=== PATIENT | female | born 1945 | race Caucasian/White ===

== ENCOUNTER 2017-01-22 05:10 | Inpatient (IN) ==
[2017-01-17 12:22] LABS: Basophils # (Auto) 0.1 K/mcL (0.0-0.3); Basophils % (Auto) 0.7 % (0.0-2.0); Eosinophils # (Auto) 0.6 K/mcL (0.0-0.7); Eosinophils % (Auto) 6.8 % (0.0-7.0); Granulocytes % (Auto) 55.1 % (38.0-78.0); Lymphocytes # (Auto) 2.5 K/mcL (1.5-4.8); Mean Cell Volume 93.6 fL (80.0-100.0); Mean Corpuscular HGB Conc 32.9 g/dL (31.0-36.0); Mean Corpuscular Hemoglobin 30.8 pg (26.0-34.0); Monocytes # (Auto) 0.5 K/mcL (0.1-0.9); Monocytes % (Auto) 6.4 % (1.0-9.0); Platelet Count 329 K/mcL (140-440); RBC 4.21 M/mcL (4.00-5.20); Red Cell Distribution Width 13.4 % (11.5-14.5)
[2017-01-17 12:33] LABS: ALT/SGPT 14 U/l (0-40); Albumin 4.7 gm/dL (3.2-5.2); Albumin/Globulin Ratio 1.9 (1.0-2.3); Alkaline Phosphatase 49 U/L (39-117); Blood Urea Nitrogen 19 mg/dl (8-23)
[2017-01-19 13:13] LABS: Appearance,Urine CLEAR; Bilirubin,Urine NEG (NEG); Color,Urine YELLOW; Glucose,Urine (UA) NORM (NEG); Leukocyte Esterase,Urine NEG /uL (NEG); Nitrate,Urine NEG (NEG); Protein,Urine TRACE mg/dL (<25); Specific Gravity,Urine 1.023 (1.000-1.035); Urine Blood NEG mg/dL (<0.03); Urobilinogen,Urine NORM (NEG)
[2017-01-19 13:24] LABS: Bacteria,Urine 0 /hpf (0); Mucus,Urine FEW /hpf (0); Urine RBC 4 /hpf (0-1); Urine Squamous Epithelial Cell 1 /hpf (0-4); Urine WBC 0 /hpf (0-4)
[2017-01-22] MEDS ORDERED: ceFAZolin 1 GM VIAL IV SCH (06:00)
[2017-01-22 06:02] LABS: Appearance,Urine HAZY; Bacteria,Urine 0 /hpf (0); Bilirubin,Urine NEG (NEG); Color,Urine YELLOW; Glucose,Urine (UA) NEGATIVE (NEG); Leukocyte Esterase,Urine 25 /uL (NEG); Mucus,Urine MANY /hpf (0); Nitrate,Urine NEG (NEG); Protein,Urine NEG (NEG); Specific Gravity,Urine 1.023 (1.000-1.035); Urine Blood NEG mg/dL (<0.03); Urine Hyaline Cast 62 /lpf (0-2); Urine RBC 2 /hpf (0-1); Urine Squamous Epithelial Cell 3 /hpf (0-4); Urine WBC 3 /hpf (0-4); Urobilinogen,Urine NEG (NEG)
[2017-01-22] MEDS ORDERED: PROPOFOL 200 MG/20 ML VIAL IV ONE (07:50)
[2017-01-22] MEDS ORDERED: LIDOCAINE HCL/PF 100 MG/5 ML SYRINGE IV ONE (07:50)
[2017-01-22] MEDS ORDERED: fentaNYL 100 MCG/2 ML VIAL IV ONE (07:50)
[2017-01-22] MEDS ORDERED: MIDAZOLAM 5 MG/5 ML VIAL IV ONE (07:50)
[2017-01-22] MEDS ORDERED: GLYCOPYRROLATE 0.2 MG/ML VIAL IV ONE (07:50)
[2017-01-22] MEDS ORDERED: PHENYLEPHRINE 10 MG/ML VIAL IV ONE (07:50)
[2017-01-22] MEDS ORDERED: DEXAMETHASONE 10 MG/ML VIAL IV ONE (07:50)
[2017-01-22] MEDS ORDERED: SUCCINYLCHOLINE 20 MG/ML ML IV ONE (07:50)
[2017-01-22] MEDS ORDERED: HYDROmorphone 2 MG/ML SYRINGE IV ONE (07:50)
[2017-01-22] MEDS ORDERED: KETAMINE 100 MG/ML ML IV ONE (07:50)
[2017-01-22] MEDS ORDERED: ONDANSETRON 4 MG/2 ML VIAL IV ONE (07:50)
[2017-01-22] MEDS ORDERED: TRANEXAMIC ACID 1,000 MG/10 ML VIAL IV ONE (07:50)
[2017-01-22] MEDS ORDERED: GELATIN SPONGE,ABSORBABLE 1 GM POWDER TOPICAL ONE (09:03)
[2017-01-22] MEDS ORDERED: GELATIN SPONGE,ABSORBABLE 1 EACH SPONGE TOPICAL ONE (09:05)
[2017-01-22] MEDS ORDERED: HEPARIN 20,000 UNIT/ML VIAL IR ONE (09:07)
[2017-01-22] MEDS ORDERED: THROMBIN (BOVINE) 5,000 UNIT VIAL TOPICAL ONE (09:08)
[2017-01-22] MEDS: CALCIUM GLUCONATE 4.65 MEQ in DEXTROSE 5% IN WATER 50 ML TOPICAL ONE ×2 (09:15→09:29)
[2017-01-22] MEDS ORDERED: CALCIUM GLUCONATE 4.65 MEQ/10 ML VIAL TOPICAL ONE (09:28)
[2017-01-22] MEDS ORDERED: PROMETHAZINE 25 MG/ML VIAL IV PRN (10:45)
[2017-01-22] MEDS ORDERED: METHOCARBAMOL 1,000 MG/10 ML VIAL IV PRN ×2 (10:45→10:55)
[2017-01-22] MEDS ORDERED: BENZOCAINE/MENTHOL 1 LOZENGE PO PRN ×2 (10:45→10:55)
[2017-01-22] MEDS ORDERED: LACTATED RINGERS 1,000 ML IV SCH (10:45)
[2017-01-22] MEDS ORDERED: LABETALOL HCL 20 MG/4 ML SYRINGE IV PRN (10:45)
[2017-01-22] MEDS ORDERED: MEPERIDINE 25 MG/ML SYRINGE IV PRN (10:45)
[2017-01-22] MEDS ORDERED: HYDROmorphone 2 MG/ML SYRINGE IV PRN (10:45)
[2017-01-22] MEDS ORDERED: IPRATROPIUM/ALBUTEROL 3 ML AMPUL.NEB NEB PRN (10:45)
[2017-01-22] MEDS ORDERED: KETOROLAC 15 MG/ML VIAL IV ONE ×2 (10:45→14:07)
[2017-01-22] MEDS ORDERED: MAGNESIUM HYDROXIDE 30 ML ORAL.SUSP PO PRN (10:55)
--- NOTE | 2017-01-22 10:55 | Brief Operative Note ---
Date of procedure: 01/22/17 Pre-op diagnosis: lumbar stenosis with instability Post-op diagnosis: same Procedure: decompression and fusion L5S1 decompression L4/5 Grafts/Implants: Yes (nuvasive) Anesthesia: GETA Findings: stenosis Complications: none Surgeon: Tao Nix Professor Of Religious Studies: Miguel Ramos Estimated blood loss (cc): 300 Condition: stable Disposition: PACU
[2017-01-22] MEDS ORDERED: BUPIVACAINE 0.25% 50 ML VIAL IJ ONE (10:59)
[2017-01-22] MEDS ORDERED: ACETAMINOPHEN 1,000 MG/100 ML BOTTLE IV ONE (11:00)
[2017-01-22] MEDS ORDERED: ACETAMINOPHEN W/CODEINE #3 1 TABLET PO PRN (11:00)
[2017-01-22] MEDS ORDERED: traMADol 50 MG TABLET PO PRN (11:00)
[2017-01-22] MEDS ORDERED: GUM MASTIC/STORAX/MSAL/ALCOHOL 1 DOSE DROPERETTE TOPICAL ONE (11:01)
[2017-01-22] MEDS: fentaNYL 100 MCG/2 ML VIAL IV PRN ×4 (11:58→12:14)
[2017-01-22] MEDS: 0.9 % SODIUM CHLORIDE 1,000 ML IV SCH ×3 (12:43→22:53)
[2017-01-22] MEDS: oxyCODONE HCL 5 MG TABLET PO PRN (13:28)
[2017-01-22] MEDS ORDERED: HYDROmorphone PCA 30 MG/30 ML PCA.VIAL IV PRN (14:02)
[2017-01-22] MEDS: ceFAZolin 1 GM VIAL IV SCH (17:06)
[2017-01-22] MEDS: metFORMIN 500 MG TABLET PO SCH (18:35)
[2017-01-22] MEDS: FERROUS GLUCONATE 324 MG TABLET PO SCH (20:55)
[2017-01-22] MEDS: SENNOSIDES 1 TABLET PO SCH (20:56)
[2017-01-22] MEDS: DOCUSATE SODIUM 100 MG CAPSULE PO SCH (20:57)
[2017-01-22] MEDS: PRAMIPEXOLE 0.25 MG TABLET PO SCH (21:02)
[2017-01-23] MEDS: ceFAZolin 1 GM VIAL IV SCH (00:31)
--- NOTE | 2017-01-23 06:39 | Orthopedic Progress Note ---
Subjective Patient information: Note initiated : 01/23/17 at 6:37 am Service Date, if different from initiated Date: [] Patient: Freida Mooney 71 y/o F admitted on 01/22/17 for L5-S1 Posterior Lumbar Decompression with Fusion. Chief Complaint: [] Principal diagnosis: lumbar stenosis Interval history: No specific complaints still some residual radicular pain Objective Vital signs: Vital Signs Temp Pulse Pulse Resp BP BP BP 01/23/17 03:48 98.3 F 79 16 107/56 01/23/17 00:00 98.4 F 80 16 94/56 01/22/17 21:35 01/22/17 21:34 01/22/17 20:00 97.4 F L 75 16 116/67 01/22/17 16:27 97 H 133/79 01/22/17 15:28 16 01/22/17 14:33 97 H 135/84 01/22/17 14:18 97 H 130/84 01/22/17 14:03 100 H 134/84 01/22/17 13:48 103 H 127/78 01/22/17 13:32 95 H 124/80 01/22/17 13:18 98 H 124/81 01/22/17 13:03 106 H 134/81 01/22/17 12:47 106 H 129/77 01/22/17 12:33 98.2 F 105 H 13 151/64 01/22/17 12:09 108 H 12 154/64 01/22/17 11:53 114 H 103 H 14 150/73 01/22/17 11:38 118 H 16 167/69 01/22/17 11:33 105 H 15 163/63 01/22/17 11:28 107 H 17 155/88 01/22/17 11:23 105 H 14 158/61 01/22/17 11:18 106 H 14 150/57 01/22/17 11:13 98.8 F 108 H 12 120/95 01/22/17 08:00 98.5 F 94 H 83 16 158/79 01/22/17 07:00 98.5 F 94 H 83 16 139/65 Pulse Ox 01/23/17 03:48 97 01/23/17 00:00 97 01/22/17 21:35 98 01/22/17 21:34 98 01/22/17 20:00 96 01/22/17 16:27 97 01/22/17 15:28 01/22/17 14:33 97 01/22/17 14:18 97 01/22/17 14:03 97 01/22/17 13:48 97 01/22/17 13:32 96 01/22/17 13:18 97 01/22/17 13:03 96 01/22/17 12:47 96 01/22/17 12:33 94 01/22/17 12:09 94 01/22/17 11:53 97 01/22/17 11:38 99 01/22/17 11:33 97 01/22/17 11:28 97 01/22/17 11:23 97 01/22/17 11:18 98 01/22/17 11:13 97 01/22/17 08:00 93 01/22/17 07:00 93 Intake and Output 01/22/17 01/23/17 01/23/17 21:59 05:59 13:59 Intake Total 1498 / 1498 Output Total 1200 / 1200 250 / 250 Balance -1200 / -1200 1248 / 1248 Intake: IV 998 / 998 Sodium Chloride 0.9% 1, 998 / 998 000 ml @ 100 mls/hr IV . Q10H [facility] Rx#:[id number] Oral 500 / 500 Output: Drainage 50 / 50 Posterior EVETTE Drain 50 / 50 Void Amount 1200 / 1200 200 / 200 Other: Weight 204 lb Intake & Output: Intake & Output 01/22/17 01/23/17 01/23/17 21:59 05:59 13:59 Intake Total 1498 / 1498 Output Total 1200 / 1200 250 / 250 Balance -1200 / -1200 1248 / 1248 Weight 204 lb Intake: IV 998 / 998 Sodium Chloride 0.9% 1, 998 / 998 000 ml @ 100 mls/hr IV . Q10H [facility] Rx#:[id number] Oral 500 / 500 Output: Drainage 50 / 50 Posterior EVETTE Drain 50 / 50 Void Amount 1200 / 1200 200 / 200 Dressing: Yes clean, Yes dry Weight bearing status: full Neurological exam IM: Yes neurovascular intact - Labs CBC & BMP: 01/17/17 10:45 01/17/17 10:45 Labs: Orthopedic Labs 01/17/17 10:45 PT 13.7 INR 1.0 03/07/17 03/01/17 05:45 10:45 Hgb Pending 13.0 Hct Pending 39.4 Assessment and Plan (1) Lumbar stenosis mobilize with physical therapy Status: Acute
[2017-01-23 07:21] LABS: Blood Urea Nitrogen 22 mg/dl (8-23)
[2017-01-23] MEDS: DULoxetine 30 MG CAPSULE PO SCH (08:02)
[2017-01-23] MEDS: LISINOPRIL 5 MG TABLET PO SCH (08:02)
[2017-01-23] MEDS: metFORMIN 500 MG TABLET PO SCH ×2 (08:02→16:56)
[2017-01-23] MEDS: DOCUSATE SODIUM 100 MG CAPSULE PO SCH ×2 (08:02→19:38)
[2017-01-23] MEDS: FERROUS GLUCONATE 324 MG TABLET PO SCH ×2 (08:05→19:37)
--- NOTE | 2017-01-23 08:56 | Operative Note ---
DATE OF OPERATION: 01/22/2017 PREOPERATIVE DIAGNOSIS: Stenosis and instability L5-S1 with lateral recess stenosis L4-L5. POSTOPERATIVE DIAGNOSIS: Stenosis and instability L5-S1 with lateral recess stenosis L4-L5. OPERATION PROPOSED: Lumbar laminotomy L4-L5 with decompression L5-S1. Posterior nonsegmental instrumentation L5-S1. Posterior/posterolateral fusion L5-S1. Application of prosthetic device interbody space and interbody fusion L5-S1. Aspiration of iliac crest for osteoprogenitor cells, bilateral iliac crests. OPERATION PERFORMED: Lumbar laminotomy L4-L5 with decompression L5-S1. Posterior nonsegmental instrumentation L5-S1. Posterior/posterolateral fusion L5-S1. Application of prosthetic device interbody space and interbody fusion L5-S1. Aspiration of iliac crest for osteoprogenitor cells, bilateral iliac crests. OPERATING SURGEON: Tao Nix MD. POLICE SERVICE TECHNICIAN: Miguel Ramos PA-C. INDICATIONS: This is a lady who has had disabling radiculopathy. She has stenosis and instability. She has failed conservative measures. We have elected to proceed with a decompression and fusion. OPERATION IN DETAIL: Informed consent was obtained. She was taken to the operating room where she was provided with appropriate anesthetic and prophylactic antibiotics. She was carefully positioned. Her back was prepped sterilely. Midline incision was made. I dissected down to expose the spinous process and lamina of L4 through S1. I dissected up and around the facet joints to expose the transverse process of L5 and the sacral ala. A marker was placed and a radiograph obtained. We then performed the decompression. This was done by removing the inferior one-half of spinous process and lamina of L5, the hypertrophied medial border of the facet joint of the hypertrophied ligamentum flavum. I then worked out into the opening of the neural foramen. I also performed a laminotomy at L4-L5, decompressing the lateral recess and the opening of the neural foramen. I then placed the posterior instrumentation, this being a pedicle screw construct. I identified the appropriate starting position. I passed a gearshift awl and cannulating the pedicle I tapped each pedicle and probed the pedicle to ensure there was no pedicle wall violation. I had also used EMG guidance. An appropriate length pedicle screw was placed at L5 and S1, both on the right and left. Radiographs obtained confirmed the position of the hardware. I then aspirated the iliac crest for osteoprogenitor cells. This was done by advancing Jamshidi type needle into the iliac crest. I aspirated. After every 10 to 15 mL of aspirate, I repositioned the needle. This was done bilaterally. I then passed the aspirate to the back table where it was spun down for osteoprogenitor cells. I then performed the application of prosthetic device interbody space and interbody fusion. This was done by mobilizing the nerve root towards the midline. I incised the annulus. I extensively curetted the disc space debriding down to subchondral bone. I removed all disc material. I then filled the disc space with morcellized bone graft. A cage from [place] was filled with morcellized graft and impacted into the site prepared for it. Posterior and posterolateral fusion was then performed. This was done by extensively decorticating the posterolateral aspect of the spine. I packed morcellized graft into and against the decorticated posterolateral aspect of the spine to allow perfusion. The procedure was completed by compressing across the interbody graft. I tightened and torqued the kezia into the top pedicle screws. I had irrigated thoroughly with pulsatile lavage prior to placing any bone graft. I closed over a deep drain with an 0 Vicryl in interrupted fashion, 2-0 Vicryl inverted deep dermal, and running subcuticular. The procedure was tolerated well. No complications. Estimated blood loss was 200 mL. GDD:harriet Job ID: [id number] Doc ID: [id number] Tao Nix MD
[2017-01-23] MEDS: oxyCODONE HCL 5 MG TABLET PO PRN ×2 (09:39→13:43)
[2017-01-23] MEDS ORDERED: KETOROLAC 30 MG/ML VIAL IV ONE (16:52)
[2017-01-23] MEDS: 0.9 % SODIUM CHLORIDE 1,000 ML IV SCH (17:09)
[2017-01-23] MEDS: HYDROmorphone 2 MG TABLET PO PRN ×2 (19:37→23:40)
[2017-01-23] MEDS: SENNOSIDES 1 TABLET PO SCH (19:38)
[2017-01-23] MEDS: PRAMIPEXOLE 0.25 MG TABLET PO SCH (19:38)
[2017-01-24] MEDS: 0.9 % SODIUM CHLORIDE 1,000 ML IV SCH (03:50)
[2017-01-24] MEDS: HYDROmorphone 2 MG TABLET PO PRN ×2 (04:10→07:03)
--- NOTE | 2017-01-24 07:30 | Discharge Summary ---
Providers - Providers Patient information: Note initiated : 01/24/17 at 7:28 am Service Date, if different from initiated Date: [] Patient: Freida Mooney 71 y/o F admitted on 01/22/17 for L5-S1 Posterior Lumbar Decompression with Fusion. Chief Complaint: [] Discharge date: 01/24/17 Attending physician: Tao Nix Hospitalization Hospital course: Patient was admitted for lumbar stenosis with instability and underwent a lumbar decompression and fusion. She tolerated the procedure well with no complications. She was maintained on prophylactic antibiotics throughout her stay. Her pain was well controlled and she tolerated all medications. She is ambulating well prior to discharge. Discharge diagnosis: S/P lumbar decompression and fusion Exam - Exam Incision healing: Yes Incision draining: No Incision red: No Incision swollen: No Incision inflamed: No Clean and dry: Yes Weight bearing status: full Ortho Discharge - Spine - Patient Instructions Discharge Diet: Regular Diet Activity: weight bearing as tolerated Spine Protocol: Limit bending and stooping. No heavy lifting. Wear brace/collar at all times except when showering and sleeping. Dressing Care: May shower in 2 days Additional Dressing Instructions: May Shower 48 hours post-operative and replace with dry dressing after shower. Patient Education: Lumbar Spinal Fusion (DC) Additional Instructions: limit bending or stooping. wear brace at all times except when showering.. May shower in 2 days. remove dressing before shower. Replace with dry dressing after showering. Use over the counter stool softeners or laxatives to avoid constipation associated with narcotic use. Call your physician for fever greater than 100.5 or pain not controlled by medication - Follow Up Plan Follow Up Appointments: Tao Nix MD [Physician] - Disposition: Home, Self-Care Prognosis: Good Rehab Potential: Good I certify that the patient requires SNF services: No Overall status at discharge: patient is progressing back to baseline - Orders For Discharge Prescriptions: HYDROmorphone [Dilaudid] 2 - 4 mg PO Q4HP PRN #60 tablet PRN Reason: Pain Methocarbamol [Robaxin-750] 750 mg PO Q8HP PRN #30 tablet PRN Reason: Muscle Spasm Pending Studies Resuscitation Status Full Code Diet Regular Diet Start SunJan 23 Breakfast Docusate Sodium (Colace) 100 mg PO BID [facility] Last Admin: 01/23/17 19:38 Dose: 100 mg Admin: 01/23/17 08:02 Dose: 100 mg Admin: 01/22/17 20:57 Dose: 100 mg Duloxetine HCl (Cymbalta) 60 mg PO DAILY [facility] Last Admin: 01/23/17 08:02 Dose: 60 mg Ferrous Gluconate (Fergon) 324 mg PO BID [facility] Last Admin: 01/23/17 19:37 Dose: 324 mg Admin: 01/23/17 08:05 Dose: 324 mg Admin: 01/22/17 20:55 Dose: 324 mg Hydromorphone HCl (Dilaudid) 2 - 4 mg PO Q4HP PRN PRN Reason: Pain Last Admin: 01/24/17 07:03 Dose: 2 mg Admin: 01/24/17 04:10 Dose: 2 mg Admin: 01/23/17 23:40 Dose: 2 mg Admin: 01/23/17 19:37 Dose: 4 mg Sodium Chloride (Sodium Chloride 0.9%) 1,000 mls @ 100 mls/hr IV .Q10H [facility] Last Admin: 01/24/17 03:50 Dose: Admin: 01/23/17 17:09 Dose: Admin: 01/23/17 17:09 Dose: Not Given Admin: 01/22/17 22:53 Dose: 100 mls/hr Infusion: 01/22/17 22:53 Dose: 100 mls/hr Admin: 01/22/17 12:54 Dose: 100 mls/hr Admin: 01/22/17 12:43 Dose: 100 mls/hr Lisinopril (Zestril) 2.5 mg PO DAILY [facility] Last Admin: 01/23/17 08:02 Dose: 2.5 mg Metformin HCl (Glucophage) 500 mg PO BIDCC [facility] Last Admin: 01/23/17 16:56 Dose: 500 mg Admin: 01/23/17 08:02 Dose: 500 mg Admin: 01/22/17 18:35 Dose: 500 mg Methocarbamol (Robaxin) 750 mg IV Q6HP PRN PRN Reason: Muscle Spasm Last Admin: 01/23/17 10:42 Dose: 750 mg Pramipexole Dihydrochloride (Mirapex) 1.5 mg PO HS [facility] Last Admin: 01/23/17 19:38 Dose: 1.5 mg Admin: 01/22/17 21:02 Dose: 1.5 mg Senna (Senokot) 2 tab PO HS [facility] Last Admin: 01/23/17 19:38 Dose: 2 tab Admin: 01/22/17 20:56 Dose: 2 tab Shift Summary 01/24/17 03:32 Shift Summary by Mei Hughes Pt A&O, up with one and FWW with brace to back. IV to right hand SL. Pain controlled with PO Dilaudid Q4H. Drsg to back is CDI, EVETTE drain charged for 20min Q2H. Pt's sister stayed in room all night. Initialized on 01/24/17 03:32 - END OF NOTE
[2017-01-24] MEDS: DOCUSATE SODIUM 100 MG CAPSULE PO SCH (08:29)
[2017-01-24] MEDS: LISINOPRIL 5 MG TABLET PO SCH (08:29)
[2017-01-24] MEDS: metFORMIN 500 MG TABLET PO SCH (08:29)
[2017-01-24] MEDS: DULoxetine 30 MG CAPSULE PO SCH (08:29)
[2017-01-24] MEDS: FERROUS GLUCONATE 324 MG TABLET PO SCH (08:30)
== END 2017-01-24 10:30 | disposition home or self-care (01) | DRG 460 ==
LOC: ICU 05:10 → MEDSUR 15:07
PROVIDERS: ADMIT Orthopaedic Surgery Orthopaedic Surgery of the Spine; ATTEND Orthopaedic Surgery Orthopaedic Surgery of the Spine

== ENCOUNTER 2017-11-19 20:11 | Inpatient (IN) ==
[2017-11-19] MEDS ORDERED: METHOCARBAMOL 750 MG TABLET PO ONE (20:46)
[2017-11-19] MEDS ORDERED: ONDANSETRON 4 MG/2 ML VIAL IV ONE (21:08)
[2017-11-19] MEDS: HYDROmorphone 2 MG/ML SYRINGE IV PRN ×2 (21:15→21:45)
--- NOTE | 2017-11-19 21:52 | Emergency Department Note ---
Lower Extremity Injury HPI - General Chief Complaint: Extremity Problem,Nontraumatic Stated Complaint: Right Groin/Leg Pain Time Seen by Provider: 11/19/17 20:27 Source: patient, EMS Mode of arrival: EMS Limitations: no limitations - History of Present Illness HPI Narrative: 72-year-old female with right hip pain for the last 10 days since increasing severity. She has increased temperature today. She was actually seen on 2016 that is 2 days ago and x-ray was taken which was unrevealing. She says the pain has become worse and she not able to walk on it or discomfort even in bed. She denies any fall or trauma. She takes ibuprofen and Tylenol without relief. She is not on home narcotics. Her right hip replacement was done approximately [address] Fenton in [place]. She states that prior to this episode of increasing pain at that right hip she did have cold and cough symptoms which have since resolved - Related Data Home Medications Medication Instructions Recorded Confirmed Vitamin E (Dl,Tocopheryl Acet) 400 unit PO DAILY 05/03/15 09/18/17 [Vitamin E] ascorbate calcium 500 mg tablet 500 mg PO DAILY 05/03/15 09/18/17 ferrous gluconate 324 mg (36 mg 324 mg PO BID tab 05/03/15 09/18/17 iron) tablet coenzyme Q10 30 mg capsule 30 mg PO QDAY 08/15/16 09/18/17 Cyanocobalamin (Vitamin B-12) 500 mcg PO DAILY 01/17/17 09/18/17 [Vitamin B-12] Previous Rx's Medication Instructions Recorded Phenazopyridine [Pyridium] 200 mg PO TIDP PRN #10 tab 04/18/17 Compression stockings (B/L 20mm #2 each 04/19/17 Hg, knee high) ropinirole 0.5 mg tablet 0.5 mg PO QHS #90 tab 04/19/17 lisinopril 2.5 mg tablet 2.5 mg PO QDAY 90 Days #90 tab 05/08/17 scopolamine 1 mg over 3 days 1 patch TRANSDERMA Q72H PRN #10 05/09/17 transdermal patch each hydrochlorothiazide 25 mg tablet 25 mg PO QDAY #10 tab 05/14/17 duloxetine 60 mg capsule,delayed 60 mg PO QDAY 90 Days #90 cap 05/15/17 release Sulfamethoxazole/Trimethoprim 1 tab PO BID #14 tab 07/25/17 [Bactrim Ds] metformin 500 mg tablet 500 mg PO BIDCC #180 tab 10/05/17 acetaminophen 300 mg-codeine 30 mg 1 tab PO QID PRN #120 tab 10/09/17 tablet pramipexole 1 mg tablet 1.5 mg PO QHS #45 tab 11/16/17 predniSONE [Prednisone] 10 mg PO QAC #30 tab 11/17/17 Allergies Allergy/AdvReac Type Severity Reaction Status Date / Time gabapentin [From Neurontin] Allergy Intermediate Swelling Verified 09/18/17 13: 49 Peibsmc-Axc-Vxy Reductase AdvReac Severe Muscle Pain Verified 09/18/17 13:49 Inhibitor esomeprazole [From Nexium] AdvReac Mild Gastrointestinal Verified 09/18/17 13:49 Upset hydrocodone AdvReac Mild Depression Verified 09/18/17 13:49 Review of Systems All systems ED: reviewed and negative except as stated. Past Medical History - Past Medical History Attestation: Yes: The following information was validated with the patient. Medical history: Reports: DM, fibromyalgia, GERD, hyperlipidemia, hypertension, migraine, other (Lumbar stenosis) [employer] history: Reports: non-contributory Surgical history ED: Reports: hip replacement, hysterectomy, orthopedic, other ( Back fusion, thumb surgery), tonsillectomy, other (Vaginal surgery, sinus surgery, blepharoplasty, adenoidectomy) - Social History smoking status: Never smoker Alcohol use: Reports: Rarely Drug use: Reports: none Physical Exam Some acute distress secondary to pain. Normocephalic atraumatic. Conjunctive are clear sclerae nonicteric. No nasal discharge or congestion. She is tachycardic. No respiratory distress. Palpation of the right hip area shows very mild tenderness of the groin. However any movement whether passive or active elicits severe tenderness. No pedal edema. Exam of the skin overlying this area shows no erythema edema fluctuant mass. Normal posterior tibialis pulse. Alert and oriented Limitations: no limitations Course Vital Signs Temperature 98.6 F 11/19/17 20:12 Pulse Rate 124 H 11/19/17 20:12 Respiratory Rate 24 H 11/19/17 20:12 Blood Pressure 155/80 11/19/17 20:12 Pulse Oximetry (%) 97 11/19/17 20:12 Temperature 98.9 F 11/19/17 22:26 Pulse Rate 89 11/19/17 22:46 Respiratory Rate 18 11/19/17 22:46 Blood Pressure 114/54 11/19/17 22:46 Pulse Oximetry (%) 94 11/19/17 22:46 Extremity Injury, Lower - Medical Records Medical records reviewed: Yes I reviewed the patient's medical records. Reviewed Anthony Sheikh's ER note from 2 days ago. - Lab Data Lab results reviewed: Yes I reviewed the patient's lab results. Result diagrams: 11/19/17 22:04 11/19/17 22:04 Lab Results 11/19/17 Range/Units 22:04 WBC 10.9 (4.5-11.0) K/mcL RBC 3.85 L (4.00-5.20) M/mcL Hgb 11.9 L (12.0-15.0) g/dL Hct 35.3 L (36.0-48.0) % MCV 91.8 (80.0-100.0) fL MCH 30.9 (26.0-34.0) pg MCHC 33.7 (31.0-36.0) g/dL RDW 13.1 (11.5-14.5) % Plt Count 331 (140-440) K/mcL MPV 6.8 L (7.4-10.4) fL Gran % 73.5 (38.0-78.0) % Lymph % (Auto) 23.8 (15.5-49.0) % [place] % (Auto) 2.5 (1.0-12.0) % Eos % (Auto) 0 (0.0-7.0) % Baso % (Auto) 0.2 (0.0-2.0) % Gran # 8.0 (1.8-8.0) K/mcL Lymph # (Auto) 2.6 (1.5-4.8) K/mcL [place] # (Auto) 0.3 (0.1-0.9) K/mcL Eos # (Auto) 0 (0.0-0.7) K/mcL Baso # (Auto) 0 (0.0-0.3) K/mcL - Radiology Data Radiology results reviewed: Yes I reviewed the patient's radiology results. X-ray from 2 days ago right hip shows no acute abnormality. Status post hip replacement Disposition Pt seen by BRANCH LENDING MANAGER/PA only: No Clinical Impression: Iliopsoas abscess on right, History of right hip replacement Summary: Started Dilaudid Zofran and Robaxin for pain while we do CT scan of the right hip to evaluate CT scan showed 5.7 x 3.4 cm iliopsoas abscess on the right. Right acetabular nail extends into the psoas muscle however the hip joint does not appear to be involved Blood cultures ordered Discussed scenario with Dr. Levar Marinelli orthopedist migration agent who agreed consult on the patient. Likely we can have interventional radiology do ultrasound- guided drainage of this abscess in the morning. Discussed case with Doctor Cathy Camarillo, hospitalist who agreed to accept the patient. He will start antibiotics after blood cultures done and he sees the patient. Chemistries are also pending at time of decision to admit Disposition: [facility] Condition: Fair Referrals: Rito Win MD [Primary Care Provider] -
[2017-11-19 22:40] LABS: Basophils # (Auto) 0 K/mcL (0.0-0.3); Basophils % (Auto) 0.2 % (0.0-2.0); Eosinophils # (Auto) 0 K/mcL (0.0-0.7); Eosinophils % (Auto) 0 % (0.0-7.0); Granulocytes % (Auto) 73.5 % (38.0-78.0); Lymphocytes # (Auto) 2.6 K/mcL (1.5-4.8); Lymphocytes % (Auto) 23.8 % (15.5-49.0); Mean Cell Volume 91.8 fL (80.0-100.0); Mean Corpuscular HGB Conc 33.7 g/dL (31.0-36.0); Mean Corpuscular Hemoglobin 30.9 pg (26.0-34.0); Monocytes # (Auto) 0.3 K/mcL (0.1-0.9); Monocytes % (Auto) 2.5 % (1.0-12.0); Platelet Count 331 K/mcL (140-440); RBC 3.85 M/mcL (4.00-5.20); Red Cell Distribution Width 13.1 % (11.5-14.5)
[2017-11-19 22:53] LABS: ALT/SGPT 13 U/l (0-40); Albumin/Globulin Ratio 1.5 (1.0-2.3); Alkaline Phosphatase 53 U/L (39-117); Blood Urea Nitrogen 22 mg/dl (8-23); C-Reactive Protein 0.3 mg/dl (0.0-0.8)
--- NOTE | 2017-11-19 23:46 | Internal Med History&Physical ---
Medical - H&P: HPI Patient information: Note initiated : 11/19/17 at 11:45 pm Service Date, if different from initiated Date: [] Patient: Freida Mooney 72 y/o F admitted on for Right Groin/Leg Pain. Chief Complaint: Right hip pain History of present illness: Patient 72-year-old female history of type 2 diabetes, hypertension, hyperlipidemia, chronic lymphocytic leukemia as well as osteoarthritis and prior left and right hip replacements. She presents to the emergency department with worsening right hip pain. Patient states the onset of pain was about a week and a half ago. She felt a "pop" and onset of pain in the right groin region. As just before [place]. It progressed, she was seen in the emergency department on November 17. Diagnosis of right hip tendinitis, which she had had before, was made. The pain however continued to worsen. Last night was fairly severe pain. Earlier today it was better, she is able to walk with a walker (normally ambulates without walker). Then tonight where during dinner, he got much worse and they presented to the emergency department. The pain is in the right groin area, radiates straight through as well as around the lateral hip to the buttock region. It ulcerate Auguste down the anterior thigh. It's worse when the leg is straight, it is less painful when the hip is flexed. She cannot flex her hip against resistance or gravity secondary to pain. The pain intensity is up to 9/10, the worst pain has occurred tonight. Patient does have a history of prior hip tendinitis and has received cortisone injections in the past. She has had bilateral hip replacements. Patient denies any fevers or chills. She is recovering from upper respiratory infection. She's had a nonproductive cough and occasional wheeze associated with that. She has chronic musculoskeletal pains, though they have all been stable, no new back pain services worse than usual and no new pains in joints that are worse than usual. No cuts or abrasions to the skin of which she is aware. Patient's had some emesis after forceful vomiting, but general no nausea or vomiting, no abdominal pain. She has occasional loose stools after lunch, unchanged. No dysuria. No chest pain/tightness/squeezing. She does not have a history of coronary artery disease. She does have a history of asthma which tends to worsen seasonally or with respiratory infections. She tends to avoid nonsteroidals due to mild renal insufficiency. Evaluation in the ED included pelvic CT which shows a right iliacus and iliopsoas muscle abscess, the largest day 3.4 x 5.7 cm abscess in the right iliopsoas muscle. Dr. Marinelli was consult the ED. She is being admitted for treatment of psoas abscess Review of systems: Except as noted in history of present illness, the remainder of a 12 point review of systems is negative. Medical - H&P: PMH Medical history: Iliopsoas abscess on right (Acute) Herpes zoster (Acute) Lumbar stenosis (Acute) Dyspnea on exertion (Acute) Urinary tract infection (Acute) Hip pain, right (Acute) Right hip tendinitis (Acute) History of right hip replacement (Acute) History of fracture of left hip (Chronic) Tachycardia (Chronic) Restless legs syndrome (Chronic) Migraine (Chronic) Menopausal and postmenopausal disorder (Chronic) Chronic lymphoid leukemia (Chronic) Hypertension, essential (Chronic 04/09/15) Hyperlipidemia (Chronic) Gastroesophageal reflux (Chronic) Fibromyalgia (Chronic) Edema (Chronic) Diverticulosis of colon (Chronic) Type 2 diabetes mellitus (Chronic) History of degenerative joint disease (Chronic) History of colonic polyps (Chronic) Chronic low back pain (Chronic 04/09/15) Anemia (Chronic) Allergic conjunctivitis (Chronic 04/09/15) Surgical history: History of vaginal surgery (Chronic) History of tonsillectomy (Chronic) History of thumb surgery (Chronic) History of sinus surgery (Chronic) History of hysterectomy (Chronic) History of left breast biopsy (Chronic) Status post blepharoplasty of both eyes (Chronic) History of adenoidectomy (Chronic) History of colonoscopy (Chronic 11/17/08) Pertinent family history: Mother Coronary artery atheroma Diabetes mellitus Malignant neoplasm Father Essential hypertension Malignant neoplasm Parkinson's Disease Social history: The patient has never smoked. Very rarely consumes alcohol. Medical - H&P: Meds Home Medications Medication Instructions Recorded Confirmed Type Vitamin E (Dl,Tocopheryl Acet) 400 unit PO DAILY 05/03/15 09/18/17 History [Vitamin E] ascorbate calcium 500 mg tablet 500 mg PO DAILY 05/03/15 09/18/17 History ferrous gluconate 324 mg (36 mg 324 mg PO BID tab 05/03/15 09/18/17 History iron) tablet coenzyme Q10 30 mg capsule 30 mg PO QDAY 08/15/16 09/18/17 History Cyanocobalamin (Vitamin B-12) 500 mcg PO DAILY 01/17/17 09/18/17 History [Vitamin B-12] Phenazopyridine [Pyridium] 200 mg PO TIDP PRN #10 tab 04/18/17 09/18/17 Rx Compression stockings (B/L 20mm #2 each 04/19/17 09/18/17 Rx Hg, knee high) ropinirole 0.5 mg tablet 0.5 mg PO QHS #90 tab 04/19/17 09/18/17 Rx lisinopril 2.5 mg tablet 2.5 mg PO QDAY 90 Days #90 tab 05/08/17 09/18/17 Rx scopolamine 1 mg over 3 days 1 patch TRANSDERMA Q72H PRN #10 05/09/17 09/18/17 Rx transdermal patch each hydrochlorothiazide 25 mg tablet 25 mg PO QDAY #10 tab 05/14/17 09/18/17 Rx duloxetine 60 mg capsule,delayed 60 mg PO QDAY 90 Days #90 cap 05/15/17 Rx release Sulfamethoxazole/Trimethoprim 1 tab PO BID #14 tab 07/25/17 09/18/17 Rx [Bactrim Ds] metformin 500 mg tablet 500 mg PO BIDCC #180 tab 10/05/17 Rx acetaminophen 300 mg-codeine 30 mg 1 tab PO QID PRN #120 tab 10/09/17 Rx tablet pramipexole 1 mg tablet 1.5 mg PO QHS #45 tab 11/16/17 Rx predniSONE [Prednisone] 10 mg PO QAMCC #30 tab 11/17/17 Rx Allergies Allergy/AdvReac Type Severity Reaction Status Date / Time gabapentin [From Neurontin] Allergy Intermediate Swelling Verified 09/18/17 13: 49 [id number]-Cqk-Tdo Reductase AdvReac Severe Muscle Pain Verified 09/18/17 13:49 Inhibitor esomeprazole [From Nexium] AdvReac Mild Gastrointestinal Verified 09/18/17 13:49 Upset hydrocodone AdvReac Mild Depression Verified 09/18/17 13:49 Medical - H&P: Exam - Constitutional Vitals: Temp Pulse Resp BP Pulse Ox 98.9 F 92 H 13 109/59 93 11/19/17 22:26 11/19/17 23:01 11/19/17 23:01 11/19/17 23:01 11/19/17 23:01 Exam: General: Alert, in mild distress, uncomfortable HEENT: Normocephalic. Pupils are equally round and reactive to light, arcus senilis present. Sclera are anicteric. No conjunctival injection. Oropharynx is with moist mucous membranes, no lip lesions. Tongue is midline. Prior dental extractions, feelings, no broken teeth, no gum erythema or lesions. Neck: Supple, no meningismus. No thyromegaly. Chest: Clear to auscultation bilaterally with no rales or wheezes. No accessory muscle use. Cardiovascular: Regular rate and rhythm without murmur gallop or rub, though heart tones are a bit distant. Carotid pulses are 2+ without bruit. There is no lower extremity edema. Dorsalis pedis pulses 2+. Abdomen: Soft, very mild tenderness with deep left lower quadrant palpation, no guarding or rebound. Active bowel sounds. Lymphatic: No cervical or supraclavicular lymphadenopathy. Skin: Warm, dry. No rash. Skin turgor is decreased. No embolic lesions. Musculoskeletal: Right hip flex to 45. Increasing pain in the groin with passsive extension of the hip towards neutral. Pain with passive external rotation. No other joint erythema or tenderness. Strength 5/5 in upper and left lower extremities, difficult to assess right lower extremity due to pain. Digits without cyanosis or clubbing. Neuro: Alert, oriented X3. Cranial nerves II through XII grossly intact. Sensation intact to light touch. Psychiatric: Affect and mood are congruent to situation. Good insight. Medical - H&P: Reslt - Labs CBC & Chem 7: 11/19/17 22:04 11/19/17 22:04 Labs: Short CBC 11/19/17 Range/Units 22:04 WBC 10.9 (4.5-11.0) K/mcL Hgb 11.9 L (12.0-15.0) g/dL Hct 35.3 L (36.0-48.0) % Plt Count 331 (140-440) K/mcL [facility] 11/19/17 22:04 Sodium 137 Potassium 5.1 Chloride 99 Carbon Dioxide 23 BUN 22 Creatinine 1.0 Glucose 110 H Calcium 9.1 Liver Function 11/19/17 Range/Units 22:04 Total Bilirubin 0.2 (0.0-1.0) mg/dL AST 14 (0-37) U/l ALT 13 (0-40) U/l Alkaline Phosphatase 53 (39-117) U/L Albumin 4.0 (3.2-5.2) gm/dL - Impressions CT of pelvis reviewed. Official impression, abscess involving the right iliacus and iliopsoas muscles. Medical - H&P: A/P (1) Iliopsoas abscess on right Current visit: Yes Status: Acute (2) Restless legs syndrome Current visit: No Status: Chronic (3) Chronic lymphoid leukemia Current visit: No Status: Chronic (4) Hypertension, essential Current visit: No Status: Chronic (5) Type 2 diabetes mellitus Current visit: No Status: Chronic - Narrative A/P Narrative: 72-year-old female with about 10 days of worsening right hip pain. Found to have iliopsoas and iliacus abscess. Iliopsoas abscess. Likely explains her symptoms. On CT, size is approximately 3.4 x 5.7 cm. No evidence of contiguous infection, suggest this was hematogenously spread. No murmur or other embolic phenomenon to suggest endocarditis. May benefit call bacteremia with hematogenous spread. We'll need to cover for staph, strep, also cover for Escherichia coli and gram negatives. Plan: 1. Inpatient admission 2. Blood cultures obtained, CT-guided aspiration and drainage ordered, nothing by mouth after midnight 3. Vancomycin and ceftriaxone, follow-up cultures 4. Orthopedic consultation, however hopefully this can be treated nonsurgically 5. If pain in the hip region continues after drainage of abscess, we'll need to consider coinfection of the right hip joint 6. Baseline inflammatory markers of CRP, ESR and pro calcitonin drawn, these will be followed Type 2 diabetes mellitus. On metformin and oral sent home. Plan: Hold metformin and oral hypoglycemics while acutely ill, sliding-scale insulin, Accu-Cheks, diabetic diet when able to take by mouth Chronic lymphocytic leukemia. Her immunosuppressed state may have predisposed to infection. Plan: Monitor CBC Hypertension. No evidence of sepsis or hypotension currently. Plan: Resume home regimen if blood pressure remains stable. CODE STATUS discussed with patient, she is full code. Prophylaxis: PPI and Lovenox
[2017-11-20] MEDS ORDERED: DEXTROSE 50% 50 ML VIAL IV PRN (00:19)
[2017-11-20] MEDS ORDERED: VANCOMYCIN PER PHARMACY IV ONE (00:19)
[2017-11-20] MEDS ORDERED: DEXTROSE 31 GM ORAL.SUSP PO PRN (00:19)
[2017-11-20] MEDS ORDERED: VANCOMYCIN 1,000 MG in 0.9 % SODIUM CHLORIDE 250 ML IV ONE (00:19)
[2017-11-20] MEDS ORDERED: oxyCODONE HCL 5 MG TABLET PO PRN (00:19)
[2017-11-20] MEDS ORDERED: ONDANSETRON 4 MG/2 ML VIAL IV PRN (00:19)
[2017-11-20] MEDS ORDERED: ALBUTEROL SULFATE 2.5 MG/3 ML NEBULIZER NEB PRN (00:19)
[2017-11-20] MEDS: 0.9 % SODIUM CHLORIDE 1,000 ML IV SCH ×2 (00:33→16:01)
[2017-11-20] MEDS ORDERED: cefTRIAXone 2 GM VIAL ONE (00:45)
[2017-11-20] MEDS ORDERED: VANCOMYCIN 1 GM VIAL ONE (00:51)
[2017-11-20] MEDS: cefTRIAXone 2 GM in DEXTROSE 5% IN WATER 50 ML IV SCH ×2 (01:11→16:25)
[2017-11-20] MEDS ORDERED: oxyCODONE HCL 5 MG TABLET PO ONE (01:16)
[2017-11-20] MEDS: HYDROmorphone 2 MG/ML SYRINGE IV PRN ×4 (01:40→10:46)
[2017-11-20] MEDS ORDERED: HYDROmorphone 2 MG/ML SYRINGE ONE ×2 (01:48→05:42)
[2017-11-20 02:14] LABS: Appearance,Urine CLEAR; Bilirubin,Urine NEG (NEG); Color,Urine YELLOW; Glucose,Urine (UA) NEGATIVE (NEG); Leukocyte Esterase,Urine NEG /uL (NEG); Nitrate,Urine NEG (NEG); Protein,Urine NEG (NEG); Specific Gravity,Urine 1.016 (1.000-1.035); Urine Blood NEG mg/dL (<0.03); Urobilinogen,Urine NEG (NEG)
[2017-11-20] MEDS: 0.9 % SODIUM CHLORIDE 10 ML SYRINGE IV SCH ×3 (05:47→22:15)
[2017-11-20] MEDS ORDERED: VANCOMYCIN PER PHARMACY IV SCH (06:30)
[2017-11-20 06:53] LABS: ALT/SGPT 10 U/l (0-40); Albumin 3.8 gm/dL (3.2-5.2); Albumin/Globulin Ratio 1.7 (1.0-2.3); Alkaline Phosphatase 50 U/L (39-117); Bilirubin,Direct < 0.2 mg/dL (0.0-0.3); Blood Urea Nitrogen 25 mg/dl (8-23); C-Reactive Protein < 0.3 mg/dl (0.0-0.8); Gamma Glutamyl Transpeptidase 13 U/L (5-36); Magnesium 1.9 mg/dL (1.6-2.5); Uric Acid 6.6 mg/dL (2.5-8.0)
[2017-11-20 08:19] LABS: Hemoglobin A1C 5.4 % HGB (4.0-6.0)
[2017-11-20] MEDS: PANTOPRAZOLE 40 MG TABLET PO SCH (08:21)
[2017-11-20] MEDS: INSULIN LISPRO 1 UNIT/0.01 ML UNIT SQ SCH ×4 (08:22→21:09)
--- NOTE | 2017-11-20 08:27 | Cat Scan Report ---
CLINICAL INFORMATION: Severe acute right hip pain COMPARISON: Abdomen and pelvic CT - 06/11/2012 TECHNIQUE: 2.5 mm helical slices were obtained from the mid L4 through the subtrochanteric regions. Following reconstruction, 2.5 mm sagittal, coronal and axial reformations were processed. The exam was reviewed in bone and soft tissue windows. The exam was performed using radiation dose optimization techniques including, but not limited to, automated exposure control, adjustment of mA and/or kV according to patient size and use of iterative reconstruction technique. FINDINGS: There is a large vague region of inhomogeneous low-attenuation extending through the right iliopsoas muscle belly (10 x 5 cm). Within this region, there are scattered regions of liquefaction compatible with abscess formation. Small amount of hemorrhage are seen within the fluid at the level of the right hip prostheses. Both hip prostheses remain in stable, near anatomic alignment, however. There is a small amount of osseous resorption about the proximal right femoral stem in the intertrochanteric region, but this is unchanged since the 2011 study and therefore should be insignificant. No definite evidence of loosening or infection. There are no effusions surrounding either prosthetic hip. The prior study, a L5-S1 anterior/posterior fusion wide laminectomy has been performed with interbody graft pedicle screws and short body struts. There is moderate posterior granulation tissue in the posterior paraspinous region with smaller amounts in the posterior epidural space. Visualized small bladder large bowel are normal. Urinary bladder is unremarkable. Tiny periumbilical hernia consisting only of mesenteric fat is unchanged over many IMPRESSION: 1. Immature 10 x 5 cm abscess within the belly of the right iliopsoas muscle with very small amounts of hemorrhage. 2. Bilateral hip prostheses remains anatomically aligned. No definite CT evidence of loosening or infection within the prostheses. 3. L5-S1 anterior/posterior fusion wide laminectomy changes alignment is anatomic. Posterior bladder base tissue in the posterior paraspinous region epidural space seen as expected. Interpreted and Authenticated by: Lon Fernandes 11/20/17
[2017-11-20] MEDS ORDERED: ENOXAPARIN 30 MG/0.3 ML SYRINGE SQ SCH (09:00)
[2017-11-20] MEDS ORDERED: VANCOMYCIN 1,000 MG in DEXTROSE 5% IN WATER 250 ML IV SCH (12:00)
[2017-11-20] MEDS ORDERED: LIDOCAINE 1% 20 ML VIAL SQ ONE ×2 (12:10→14:35)
[2017-11-20] MEDS ORDERED: fentaNYL 100 MCG/2 ML VIAL IV ONE ×2 (12:10→12:45)
--- NOTE | 2017-11-20 15:32 | Cat Scan Report ---
CLINICAL INFORMATION: Possible iliopsoas abscess. Acute right hip pain COMPARISON: Pelvic CT 11/19/2017 and also 06/11/2012. TECHNIQUE: The procedure and risks including possibility of bleeding and infection were explained to the patient. She understood and wished to proceed. She was sedated on the floor prior to arrival, but an additional 1 mg of fentanyl was given in 0.5 mg divided doses while blood pressure and pulse oximeter were monitored monitored. She maintained consciousness during the procedure. Total sedation time: 40 minutes. The patient supine position, the right iliopsoas was first CT localized., the skin overlying the right iliopsoas, in the right lower quadrant anterior abdominal wall, was marked, prepped and locally anesthetized with 1% lidocaine to the level of the iliopsoas using a 25-gauge needle. A 17-gauge styletted needle was then placed under CT guidance into the central aspect of the iliopsoas muscle in the lowest attenuation region which was thought to be liquefied. Only approximately 5 cc of blood could be aspirated. There is no purulent fluid. This would indicate this represents a iliopsoas hemorrhage rather than a true abscess. IMPRESSION: Aspiration of 5 cc of blood from a hematoma in the right iliopsoas muscle. There is no evidence of abscess. Fluid was sent for Gram stain culture and sensitivity. Patient tolerated procedure well. A drainage tube was not left in place The prosthetic right hip was not concomitantly aspirated because of CT scheduling time constraints. This could be done under fluoroscopy in a separate procedure while she is still an inpatient Interpreted and Authenticated by: Lon Fernandes 11/20/17
--- NOTE | 2017-11-20 18:04 | Internal Med Progress Note ---
Medical - PN: Subj Patient information: Note initiated : 11/20/17 at 6:01 pm Service Date, if different from initiated Date: [] Patient: Freida Mooney 72 y/o F admitted on 11/20/17 for Right Groin/Leg Pain. Chief Complaint: f/u psoas abscess/hemorrhage Interval history: Patient 72-year-old female history of type 2 diabetes, hypertension, hyperlipidemia, chronic lymphocytic leukemia as well as osteoarthritis and prior left and right hip replacements. She presents to the emergency department with worsening right hip pain. Patient states the onset of pain was about a week and a half ago. She felt a "pop" and onset of pain in the right groin region. As just before [place]. It progressed, she was seen in the emergency department on November 17. Diagnosis of right hip tendinitis, which she had had before, was made. The pain however continued to worsen. Last night was fairly severe pain. Earlier today it was better, she is able to walk with a walker (normally ambulates without walker). Then tonight where during dinner, he got much worse and they presented to the emergency department. The pain is in the right groin area, radiates straight through as well as around the lateral hip to the buttock region. It ulcerate Auguste down the anterior thigh. It's worse when the leg is straight, it is less painful when the hip is flexed. She cannot flex her hip against resistance or gravity secondary to pain. The pain intensity is up to 9/10, the worst pain has occurred tonight. Patient does have a history of prior hip tendinitis and has received cortisone injections in the past. She has had bilateral hip replacements. Patient denies any fevers or chills. She is recovering from upper respiratory infection. She's had a nonproductive cough and occasional wheeze associated with that. She has chronic musculoskeletal pains, though they have all been stable, no new back pain services worse than usual and no new pains in joints that are worse than usual. No cuts or abrasions to the skin of which she is aware. Patient's had some emesis after forceful vomiting, but general no nausea or vomiting, no abdominal pain. She has occasional loose stools after lunch, unchanged. No dysuria. No chest pain/tightness/squeezing. She does not have a history of coronary artery disease. She does have a history of asthma which tends to worsen seasonally or with respiratory infections. She tends to avoid nonsteroidals due to mild renal insufficiency. Evaluation in the ED included pelvic CT which shows a right iliacus and iliopsoas muscle abscess, the largest day 3.4 x 5.7 cm abscess in the right iliopsoas muscle. Dr. Marinelli was consult the ED. She is being admitted for treatment of psoas abscess Jacques 2 Patient had aspiration of so as abscess. Only bloody fluid was returned, no purulence. Suggests hemorrhage rather than abscess as cause of pain (though I would like to clarify if the CT density of the finding in the psoas was consistent with blood). Her pain was significantly improved after the procedure. It was mildly improved prior to the procedure with antibiotics. CRP is only mildly elevated is normalized today. Gram stain and cultures are pending. 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 Her teacher had TB. The patient's never had a positive chest x-ray. In the unlikely this represents AFB infection, but studies will be sent. - Constitutional Vitals: Vital Signs Temp Pulse Resp BP Pulse Ox 98.0 F 65 16 91/59 91 11/20/17 16:00 11/20/17 12:55 11/20/17 16:00 11/20/17 16:00 11/20/17 16:00 Period Temp Pulse Resp BP Sys/[place] Pulse Ox Last 24 Hr 97.6 F-98.9 F 65-124 10-24 79-155/46-96 87-99 Intake and Output 11/20/17 11/20/17 11/20/17 05:59 13:59 21:59 Intake Total 300 / 300 1650 / 1650 Output Total 125 / 125 550 / 550 550 / 550 Balance 175 / 175 -550 / -550 1100 / 1100 Weight 195 lb Intake & Output: Intake & Output 11/20/17 11/20/17 11/20/17 05:59 13:59 21:59 Intake Total 300 / 300 1650 / 1650 Output Total 125 / 125 550 / 550 550 / 550 Balance 175 / 175 -550 / -550 1100 / 1100 Weight 195 lb Intake: IV 300 / 300 1000 / 1000 Sodium Chloride 0.9% 1,000 ml @ 1000 / 1000 75 mls/hr IV .[id number] [facility] Rx#: [id number] Vancomycin 1,000 mg In Sodium 250 / 250 Chloride 0.9% 250 ml @ 250 mls/ hr IV ONCE ONE Rx#:[id number] Rocephin 2 gm In Dextrose 5% in 50 / 50 Water 50 ml @ 100 mls/hr IV Q24H [facility] Rx#:[id number] Oral 0 / 0 250 / 250 GI Tube Flush 400 / 400 Output: Urine Catheter Amount 125 / 125 550 / 550 550 / 550 Other: Meal Lunch Percent of Meal Consumed 100% Feeding Ability Independent Exam: General: Laying in bed, low groggy after the procedure Chest: Clear, respirations unlabored Cardiovascular: Regular, no murmur Abdomen: Soft, active bowel sounds Musculoskeletal: Able to flex left hip actively with out much pain. Neuro: Alert, oriented Medical - PN: Obj Da - Labs CBC & Chem 7: 11/19/17 22:04 11/20/17 04:05 Labs: Abnormal Lab Results 11/20/17 11/20/17 11/19/17 07:25 04:05 22:04 RBC Hgb Hct MPV ESR 41 H POC PT 16.3 H POC INR 1.4 H BUN 25 H Creatinine 1.2 H Glucose Calcium 8.3 L Phosphorus 4.9 H Triglycerides 245 H 11/19/17 11/19/17 22:04 22:04 RBC 3.85 L Hgb 11.9 L Hct 35.3 L MPV 6.8 L ESR POC PT POC INR BUN Creatinine Glucose 110 H Calcium Phosphorus Triglycerides Meds: Medications Acetaminophen (Tylenol) 650 mg PO Q6HP PRN PRN Reason: PAIN/FEVER > 101 Albuterol Sulfate (Ventolin) 2.5 mg NEB Q2HP PRN PRN Reason: Shortness Of Breath Dextrose (Dextrose 50%) 0 ml IV UD PRN PRN Reason: Hypoglycemia Diagnostic Test (Pha) (Accu-Chek) 1 each FS ACHS [facility] Last Admin: 11/20/17 17:08 Dose: 1 each Glucose (Insta-Glucose) 15 gm PO PRN PRN PRN Reason: Hypoglycemia Hydromorphone HCl (Dilaudid) 2 mg IV Q2HP PRN PRN Reason: PAIN LEVEL > 6 Last Admin: 11/20/17 10:46 Dose: 2 mg Ceftriaxone Sodium 2 gm/ (Dextrose) 50 mls @ 100 mls/hr IV Q24H [facility] Last Admin: 11/20/17 16:25 Dose: 100 mls/hr Sodium Chloride (Sodium Chloride 0.9%) 1,000 mls @ 75 mls/hr IV .[id number] [facility] Last Admin: 11/20/17 16:01 Dose: 75 mls/hr Vancomycin HCl 1,000 mg/ (Dextrose) 250 mls @ 250 mls/hr IV Q24H [facility] Last Admin: 11/20/17 13:26 Dose: 250 mls/hr Insulin Human Lispro (Humalog) 0 unit SQ ACHS [facility] PRN Reason: Protocol Last Admin: 11/20/17 17:08 Dose: Not Given Non-Admin Reason: No Coverage Needed Lisinopril (Zestril) 2.5 mg PO QDAY [facility] Non-Formulary Medication (Duloxetine Hcl [Cymbalta]) 60 mg PO QDAY [facility] Ondansetron HCl (Zofran) 4 mg IV Q6HP PRN PRN Reason: Nausea And Vomiting Oxycodone HCl (Roxicodone) 5 mg PO Q4HP PRN PRN Reason: PAIN LEVEL 3-6 Last Admin: 11/20/17 01:09 Dose: 5 mg Pantoprazole Sodium (Protonix) 40 mg PO QAMAC [facility] Last Admin: 11/20/17 08:21 Dose: 40 mg Pramipexole Dihydrochloride (Mirapex) 1.5 mg PO QHS [facility] Sodium Chloride (Saline Flush) 10 ml IV Q8 [facility] Last Admin: 11/20/17 14:00 Dose: 10 ml Vancomycin HCl (Vancomycin Per Pharmacy) 1 order IV UD [facility] Medical - PN: A/P - Time Spent With Patient Total time spent is greater than 50% in coordination of care (as documented) at patient's floor/unit and/or counseling patient: (1) Iliopsoas abscess on right Status: Acute Current Visit: Yes (2) Restless legs syndrome Status: Chronic Current Visit: No (3) Chronic lymphoid leukemia Status: Chronic Current Visit: No (4) Hypertension, essential Status: Chronic Current Visit: No (5) Type 2 diabetes mellitus Status: Chronic Current Visit: No - Narrative A/P Narrative: 72-year-old female with about 10 days of worsening right hip pain. Found to have iliopsoas and iliacus abscess, though aspiration reveals blood. Iliopsoas fluid. Likely explains her symptoms. On CT, size is approximately 3.[address]-guided aspiration today revealed bloody fluid with no purulence. May be hemorrhage, cultures and Gram stain are still pending. Unclear if the Hounsfield units on the scan more consistent with blood. The patient did feel a "popping" prior to the initial onset of the pain. Plan: Follow-up Gram stain and culture, send AFB studies as patient has history of prior exposure. Continue with current antibiotics until cultures are negative. For now we will hold on aspirating the hip. Reconsider that if she worsens. Only mild elevation in inflammatory markers suggest this may not be an abscess. Type 2 diabetes mellitus. On metformin at home. Plan: Hold metformin and oral hypoglycemics while acutely ill, sliding-scale insulin, Accu-Cheks, diabetic diet when able to take by mouth Chronic lymphocytic leukemia. Her immunosuppressed state may have predisposed to infection. Plan: Monitor CBC Hypertension. No evidence of sepsis or hypotension currently. Plan: Resume home regimen if blood pressure remains stable. Prophylaxis: Stop Lovenox with possibility of psoas hemorrhage, continue SCDs. Medical - PN: Qual - VTE Deep Vein Thrombosis/Pulmonary Embolism Present on Admission: No
[2017-11-20] MEDS: ACETAMINOPHEN 325 MG TABLET PO PRN (21:07)
[2017-11-20] MEDS: PRAMIPEXOLE 1 MG TABLET PO SCH (21:08)
[2017-11-21] MEDS: 0.9 % SODIUM CHLORIDE 10 ML SYRINGE IV SCH ×3 (05:14→23:46)
[2017-11-21 07:17] LABS: Blood Urea Nitrogen 37 mg/dl (8-23)
--- NOTE | 2017-11-21 08:02 | Consultation ---
DATE OF CONSULTATION: 11/20/2017 CHIEF COMPLAINT: Right hip pain. HISTORY: The patient is a 72-year-old female who has had bilateral hip replacements about 8 years ago. She has history of chronic lymphocytic leukemia, hyperlipidemia, hypertension, and type II diabetes. She presented to the Emergency Department on 11/19 around midnight for right groin and leg pain. She states she has a history of bilateral hip replacements that have gone on to do well, but has a history of bilateral hip iliopsoas tendonitis. She has had injections before, noting recently. She has been walking a lot of stairs at her sister's house before [place] and about a week and a half ago she felt a pop and had right groin pain. It has progressively worsened until she presented to the Emergency Department. She had to ambulate with a walker. She has trouble flexing her hip secondary to pain. Her pain is worse when the hip is straightened. She denied any fevers or chills, otherwise has had no evidence of illness. PAST MEDICAL HISTORY: Iliopsoas tendonitis, herpes zoster, lumbar stenosis, dyspnea on exertion, urinary tract infection, right hip pain, right hip tendonitis, bilateral hip replacements, tachycardia, restless leg syndrome, migraines, chronic menopause, CLL, hypertension, hyperlipidemia, GERD, fibromyalgia, edema, diverticulosis, type II diabetes, DJD, colonic polyps, chronic low back pain, anemia, allergic conjunctivitis. PAST SURGICAL HISTORY: History of vaginal surgery, tonsillectomy, thumb surgery, sinus surgery, hysterectomy, left breast biopsy, blepharoplasty, adenoidectomy, colonoscopy, bilateral total hip arthroplasties. FAMILY HISTORY: Negative. SOCIAL HISTORY: Denies tobacco and rarely uses alcohol. REVIEW OF SYSTEMS: No recent chest pain, shortness of breath, fevers, chills, nausea, vomiting, diarrhea or constipation. MEDICATIONS: 1. Vitamin E. 2. Calcium. 3. Ferrous gluconate. 4. Coenzyme Q10. 5. Cyanocobalamin. 6. Phenazopyridine. 7. Ropinirole. 8. Lisinopril. 9. Scopolamine. 10. Hydrochlorothiazide. 11. Duloxetine. 12. Bactrim DS. 13. Metformin. 14. Tylenol #3. 15. Prempril. 16. Prednisone. ALLERGIES: GABAPENTIN, STATINS, ESOMEPRAZOLE, HYDROCODONE. PHYSICAL EXAM: GENERAL: Resting on the hospital bed, in no acute distress. She is alert and oriented x3, cooperative to exam. VITALS: Temperature 98.9, pulse 92, respirations 13, blood pressure 109/59, pulse 93. HEART: Regular rate and rhythm. No murmur or gallop. CHEST: Clear to auscultation in all lung albright bilaterally. ABDOMEN: Soft, nontender, nondistended. MUSCULOSKELETAL: She has her hip flexed at 45 degrees, increased pain with passive extension and also pain with rotation in the iliopsoas region. She has 5/5 strength. No tenderness over the lateral hip. There is no erythema. No drainage. No redness. Sensation is intact to light touch grossly throughout the extremity. LABS AND IMAGING: White count 10.9, hemoglobin 11.9, sed rate and CRP normal. CT pelvis: Demonstrates fluid in the iliac and iliopsoas muscles, about 3.4 x 5.7, which is a hematoma versus abscess. ASSESSMENT: Right hip pain with fluid in the iliopsoas consistent with either a hematoma or abscess. PLANS: Plans are already underway for a CT-guided aspiration and drainage. She was placed on antibiotics per the hospitalist. I also asked to get an aspiration of the hip under fluoroscopy. We will make sure there is no infection of the hip. It appears to be more isolated to the psoas. We will continue to follow this closely. HELADIO:luis Job ID: [id number] Doc ID: [id number] Vivek Marinelli MD
[2017-11-21] MEDS: PANTOPRAZOLE 40 MG TABLET PO SCH (08:16)
[2017-11-21] MEDS: INSULIN LISPRO 1 UNIT/0.01 ML UNIT SQ SCH ×4 (08:17→22:00)
[2017-11-21] MEDS: DULoxetine 30 MG CAPSULE PO SCH (10:15)
[2017-11-21] MEDS: cefTRIAXone 2 GM in DEXTROSE 5% IN WATER 50 ML IV SCH (10:15)
[2017-11-21] MEDS: LISINOPRIL 5 MG TABLET PO SCH (10:15)
[2017-11-21] MEDS: ACETAMINOPHEN 325 MG TABLET PO PRN (10:29)
--- NOTE | 2017-11-21 11:38 | Internal Med Progress Note ---
Medical - PN: Subj Patient information: Note initiated : 11/21/17 at 11:36 am Service Date, if different from initiated Date: [] Patient: Freida Mooney 72 y/o F admitted on 11/20/17 for Right Groin, Leg Pain/Iliopsoas Abscess on Right. Chief Complaint: Follow-up psoas hemorrhage versus abscess Interval history: Patient 72-year-old female history of type 2 diabetes, hypertension, hyperlipidemia, chronic lymphocytic leukemia as well as osteoarthritis and prior left and right hip replacements. She presents to the emergency department with worsening right hip pain. Patient states the onset of pain was about a week and a half ago. She felt a "pop" and onset of pain in the right groin region. As just before . It progressed, she was seen in the emergency department on November 17. Diagnosis of right hip tendinitis, which she had had before, was made. The pain however continued to worsen. Last night was fairly severe pain. Earlier today it was better, she is able to walk with a walker (normally ambulates without walker). Then tonight where during dinner, he got much worse and they presented to the emergency department. The pain is in the right groin area, radiates straight through as well as around the lateral hip to the buttock region. It ulcerate Auguste down the anterior thigh. It's worse when the leg is straight, it is less painful when the hip is flexed. She cannot flex her hip against resistance or gravity secondary to pain. The pain intensity is up to 9/10, the worst pain has occurred tonight. Patient does have a history of prior hip tendinitis and has received cortisone injections in the past. She has had bilateral hip replacements. Patient denies any fevers or chills. She is recovering from upper respiratory infection. She's had a nonproductive cough and occasional wheeze associated with that. She has chronic musculoskeletal pains, though they have all been stable, no new back pain services worse than usual and no new pains in joints that are worse than usual. No cuts or abrasions to the skin of which she is aware. Patient's had some emesis after forceful vomiting, but general no nausea or vomiting, no abdominal pain. She has occasional loose stools after lunch, unchanged. No dysuria. No chest pain/tightness/squeezing. She does not have a history of coronary artery disease. She does have a history of asthma which tends to worsen seasonally or with respiratory infections. She tends to avoid nonsteroidals due to mild renal insufficiency. Evaluation in the ED included pelvic CT which shows a right iliacus and iliopsoas muscle abscess, the largest day 3.4 x 5.7 cm abscess in the right iliopsoas muscle. Dr. Marinelli was consult the ED. She is being admitted for treatment of psoas abscess Nov 20 Patient had aspiration of so as abscess. Only bloody fluid was returned, no purulence. Suggests hemorrhage rather than abscess as cause of pain (though I would like to clarify if the CT density of the finding in the psoas was consistent with blood). Her pain was significantly improved after the procedure. It was mildly improved prior to the procedure with antibiotics. CRP is only mildly elevated is normalized today. Gram stain and cultures are pending. 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 Her teacher had TB. The patient's never had a positive chest x-ray. In the unlikely this represents AFB infection, but studies will be sent. Nov 21 Continues to feel well after aspiration of bloody fluid from psoas muscle yesterday. Ambulating in halls. Able to actively flex hip with no to minimal pain. No fevers or chills. - Constitutional Vitals: Vital Signs Temp Pulse Resp BP Pulse Ox 97.7 F 76 20 165/74 93 11/21/17 10:29 11/21/17 07:49 11/21/17 07:40 11/21/17 07:40 11/21/17 07:49 Period Temp Pulse Resp BP Sys/[place] Pulse Ox Last 24 Hr 97.2 F-98.0 F 65-80 16-22 91-165/46-74 91-99 Intake and Output 11/20/17 11/21/17 11/21/17 21:59 05:59 13:59 Intake Total 1650 / 1650 725 / 725 Output Total 550 / 550 475 / 475 Balance 1100 / 1100 250 / 250 Weight 196 lb 196 lb Patient Weight 11/22/17 05:59 Weight 196 lb Intake & Output: Intake & Output 11/20/17 11/21/17 11/21/17 21:59 05:59 13:59 Intake Total 1650 / 1650 725 / 725 Output Total 550 / 550 475 / 475 Balance 1100 / 1100 250 / 250 Weight 196 lb 196 lb Intake: IV 1000 / 1000 300 / 300 Sodium Chloride 0.9% 1,000 ml @ 1000 / 1000 75 mls/hr IV .[id number] [facility] Rx#: [id number] Vancomycin 1,000 mg In Dextrose 250 / 250 5% in Water 250 ml @ 250 mls/ hr IV Q24H [facility] Rx#:[id number] Rocephin 2 gm In Dextrose 5% in 50 / 50 Water 50 ml @ 100 mls/hr IV Q24H [facility] Rx#:[id number] Oral 250 / 250 425 / 425 GI Tube Flush 400 / 400 Output: Urine Catheter Amount 550 / 550 475 / 475 Other: Meal Lunch Percent of Meal Consumed 100% Feeding Ability Independent Exam: General: Comfortable appearing, no distress Chest: Clear Cardiac vascular: Regular, no murmur Abdomen: Active bowel sounds, soft, nontender Musculoskeletal: No tenderness with passive flexion and extension nor rotation of right hip. Neuro: Alert, oriented Medical - PN: Obj Da - Labs CBC & Chem 7: 11/19/17 22:04 11/21/17 03:55 Labs: Abnormal Lab Results 11/21/17 11/20/17 11/20/17 03:55 07:25 04:05 RBC Hgb Hct MPV ESR POC PT 16.3 H POC INR 1.4 H Carbon Dioxide 21 L BUN 37 H 25 H Creatinine 1.8 H 1.2 H Glucose Calcium 8.0 L 8.3 L Phosphorus 4.9 H Triglycerides 245 H 11/19/17 11/19/17 11/19/17 22:04 22:04 22:04 RBC 3.85 L Hgb 11.9 L Hct 35.3 L MPV 6.8 L ESR 41 H POC PT POC INR Carbon Dioxide BUN Creatinine Glucose 110 H Calcium Phosphorus Triglycerides Microbiology 11/20/17 19:28 Gram Stain - Final Abscess - Other Anaerobic Culture - Preliminary 11/20/17 19:26 Gram Stain - Final Aspirate - Other Body Fluid Culture - Preliminary 11/19/17 23:14 Blood Culture - Preliminary Blood 11/19/17 23:01 Blood Culture - Preliminary Blood 11/20/17 19:25 Gram Stain - Final Hip - Right Meds: Medications Acetaminophen (Tylenol) 650 mg PO Q6HP PRN PRN Reason: PAIN/FEVER > 101 Last Admin: 11/21/17 10:29 Dose: 650 mg Albuterol Sulfate (Ventolin) 2.5 mg NEB Q2HP PRN PRN Reason: Shortness Of Breath Dextrose (Dextrose 50%) 0 ml IV UD PRN PRN Reason: Hypoglycemia Diagnostic Test (Pha) (Accu-Chek) 1 each FS ACHS [facility] Last Admin: 11/21/17 08:17 Dose: 1 each Duloxetine HCl (Cymbalta) 60 mg PO DAILY [facility] Last Admin: 11/21/17 10:15 Dose: 60 mg Glucose (Insta-Glucose) 15 gm PO PRN PRN PRN Reason: Hypoglycemia Hydromorphone HCl (Dilaudid) 2 mg IV Q2HP PRN PRN Reason: PAIN LEVEL > 6 Last Admin: 11/20/17 10:46 Dose: 2 mg Ceftriaxone Sodium 2 gm/ (Dextrose) 50 mls @ 100 mls/hr IV Q24H [facility] Last Admin: 11/21/17 10:15 Dose: 100 mls/hr Vancomycin HCl 1,000 mg/ (Sodium Chloride) 250 mls @ 250 mls/hr IV Q24H [facility] Insulin Human Lispro (Humalog) 0 unit SQ ACHS [facility] PRN Reason: Protocol Last Admin: 11/21/17 08:17 Dose: Not Given Lisinopril (Zestril) 2.5 mg PO DAILY [facility] Last Admin: 11/21/17 10:15 Dose: 2.5 mg Ondansetron HCl (Zofran) 4 mg IV Q6HP PRN PRN Reason: Nausea And Vomiting Oxycodone HCl (Roxicodone) 5 mg PO Q4HP PRN PRN Reason: PAIN LEVEL 3-6 Last Admin: 11/20/17 01:09 Dose: 5 mg Pantoprazole Sodium (Protonix) 40 mg PO QAMAC [facility] Last Admin: 11/21/17 08:16 Dose: 40 mg Pramipexole Dihydrochloride (Mirapex) 1.5 mg PO QHS [facility] Last Admin: 11/20/17 21:08 Dose: 1.5 mg Sodium Chloride (Saline Flush) 10 ml IV Q8 [facility] Last Admin: 11/21/17 05:14 Dose: Not Given Vancomycin HCl (Vancomycin Per Pharmacy) 1 order IV UD [facility] Medical - PN: A/P - Time Spent With Patient Total time spent is greater than 50% in coordination of care (as documented) at patient's floor/unit and/or counseling patient: 25 - 35 minutes (1) Iliopsoas abscess on right Status: Acute Current Visit: Yes (2) Restless legs syndrome Status: Chronic Current Visit: No (3) Chronic lymphoid leukemia Status: Chronic Current Visit: No (4) Hypertension, essential Status: Chronic Current Visit: No (5) Type 2 diabetes mellitus Status: Chronic Current Visit: No - Narrative A/P Narrative: 72-year-old female with about 10 days of worsening right hip pain. Found to have iliopsoas and iliacus abscess, though aspiration reveals blood. Iliopsoas fluid. Likely explains her symptoms. May be hemorrhage (versus abscess). Fluid was bloody, not purulent. The patient did feel a "popping" prior to the initial pain. Inflammatory markers and white count were not markedly elevated at presentation, which could be consistent with hemorrhage. Still need to rule out infection. Patient has remote history of AFB exposure, positive skin test, though AFB related infection would be quite unlikely. QuantiFERON Gold is pending. Plan: Continue antibiotics, follow up cultures. If cultures negative at 48 hours, we'll consider stopping antibiotics and monitoring for another 24 hours to make sure symptoms do not recur. Status post right total hip arthroplasty. Initially asked for right hip aspiration rule out infection as well. That was not done due to scheduling constraints and concern for going to infected tissue. Given rapid improvement with relief of mass effect from bloody fluid, no pain currently, we'll hold on hip aspiration. Note that microbiology sample labeled as right hip aspirate is incorrect, the procedure was not performed. Type 2 diabetes mellitus. On metformin at home. Plan: Hold metformin and oral hypoglycemics while acutely ill, sliding-scale insulin, Accu-Cheks, diabetic diet when able to take by mouth Chronic lymphocytic leukemia. Her immunosuppressed state may have predisposed to infection. Plan: Monitor CBC Hypertension. No evidence of sepsis or hypotension currently. Plan: Resume home regimen if blood pressure remains stable. Prophylaxis: Stop Lovenox with possibility of psoas hemorrhage, continue SCDs. Medical - PN: Qual - VTE Deep Vein Thrombosis/Pulmonary Embolism Present on Admission: No
[2017-11-21] MEDS ORDERED: VANCOMYCIN 1,000 MG in 0.9 % SODIUM CHLORIDE 250 ML IV SCH (12:00)
[2017-11-21 12:31] LABS: Basophils # (Auto) 0 K/mcL (0.0-0.3); Basophils % (Auto) 0.6 % (0.0-2.0); Eosinophils # (Auto) 0.3 K/mcL (0.0-0.7); Eosinophils % (Auto) 3.7 % (0.0-7.0); Granulocytes % (Auto) 63.6 % (38.0-78.0); Lymphocytes # (Auto) 2.3 K/mcL (1.5-4.8); Lymphocytes % (Auto) 26.4 % (15.5-49.0); Mean Cell Volume 93.1 fL (80.0-100.0); Mean Corpuscular HGB Conc 33.3 g/dL (31.0-36.0); Monocytes # (Auto) 0.5 K/mcL (0.1-0.9); Monocytes % (Auto) 5.7 % (1.0-12.0); Platelet Count 265 K/mcL (140-440); RBC 3.37 M/mcL (4.00-5.20); Red Cell Distribution Width 13.4 % (11.5-14.5)
[2017-11-21] MEDS: 0.9 % SODIUM CHLORIDE 1,000 ML IV SCH (13:00)
[2017-11-21] MEDS: PRAMIPEXOLE 1 MG TABLET PO SCH (22:19)
[2017-11-22] MEDS: 0.9 % SODIUM CHLORIDE 1,000 ML IV SCH ×2 (00:37→10:44)
[2017-11-22] MEDS: 0.9 % SODIUM CHLORIDE 10 ML SYRINGE IV SCH (05:58)
[2017-11-22 06:19] LABS: Basophils # (Auto) 0 K/mcL (0.0-0.3); Basophils % (Auto) 0.6 % (0.0-2.0); Eosinophils # (Auto) 0.4 K/mcL (0.0-0.7); Granulocytes % (Auto) 55.9 % (38.0-78.0); Lymphocytes # (Auto) 2.4 K/mcL (1.5-4.8); Lymphocytes % (Auto) 32.7 % (15.5-49.0); Mean Cell Volume 92.1 fL (80.0-100.0); Mean Corpuscular Hemoglobin 31.3 pg (26.0-34.0); Monocytes # (Auto) 0.4 K/mcL (0.1-0.9); Monocytes % (Auto) 5.8 % (1.0-12.0); Platelet Count 254 K/mcL (140-440); RBC 3.39 M/mcL (4.00-5.20); Red Cell Distribution Width 13.1 % (11.5-14.5)
[2017-11-22 07:08] LABS: ALT/SGPT 8 U/l (0-40); Albumin 3.5 gm/dL (3.2-5.2); Albumin/Globulin Ratio 1.6 (1.0-2.3); Alkaline Phosphatase 44 U/L (39-117); Bilirubin,Direct < 0.2 mg/dL (0.0-0.3); Blood Urea Nitrogen 24 mg/dl (8-23); Gamma Glutamyl Transpeptidase 9 U/L (5-36); Magnesium 1.9 mg/dL (1.6-2.5); Uric Acid 6.7 mg/dL (2.5-8.0)
[2017-11-22] MEDS: PANTOPRAZOLE 40 MG TABLET PO SCH (07:44)
[2017-11-22] MEDS: INSULIN LISPRO 1 UNIT/0.01 ML UNIT SQ SCH ×2 (07:45→11:30)
[2017-11-22] MEDS: DULoxetine 30 MG CAPSULE PO SCH (10:43)
[2017-11-22] MEDS: cefTRIAXone 2 GM in DEXTROSE 5% IN WATER 50 ML IV SCH (10:43)
[2017-11-22] MEDS: LISINOPRIL 5 MG TABLET PO SCH (10:44)
--- NOTE | 2017-11-22 10:44 | Discharge Summary ---
Medical - DS: Prov Patient information: Note initiated : 11/22/17 at 10:34 am Service Date, if different from initiated Date: [] Patient: Freida Mooney 72 y/o F admitted on 11/20/17 for Right Groin, Leg Pain/Iliopsoas Abscess on Right. Chief Complaint: [] Date of admission: 11/20/17 00:01 Discharge date: 11/22/17 Primary care physician: Rito Win Admitting clinician: Cathy Phillips Consults: 11/19/17 22:40 Consult to Physician [CONS] Stat Comment: Consulting Provider: Cathy Phillips Reason For Exam: Physician to Consult 11/19/17 22:43 Consult to Physician [CONS] Stat Comment: Consulting Provider: Lon Marinelli Reason For Exam: Physician to Consult Discharging clinician: Gissell Moffett Medical - DS: Meds - Discharge Medications Active and Home Medications: Home Medications ascorbate calcium 500 mg tablet 500 mg PO DAILY 05/03/15 [History Confirmed 01/06 Last Taken 11/16/17 08:00] ferrous gluconate 324 mg (36 mg iron) tablet 324 mg PO BID tab 05/03/15 [ History Confirmed 11/20/17 Last Taken 11/19/17 20:00] vitamin E (dl, acetate) 400 unit capsule 400 unit PO DAILY 05/03/15 [History Confirmed 11/20/17 Last Taken 11/19/17 08:00] coenzyme Q10 30 mg capsule 30 mg PO QDAY 08/15/16 [History Confirmed 11/20/17 Last Taken 11/19/17 08:00] lisinopril 2.5 mg tablet 2.5 mg PO QDAY 90 Days #90 tab 05/08/17 [Rx Confirmed 11/20/17 Last Taken 11/19/17 08:00] duloxetine 60 mg capsule,delayed release 60 mg PO QDAY 90 Days #90 cap 05/15/17 [Rx Confirmed 11/20/17 Last Taken 11/19/17 08:00] metformin 500 mg tablet 500 mg PO BIDCC #180 tab 10/05/17 [Rx Confirmed Last Taken 11/19/17 08:00] pramipexole 1 mg tablet 1.5 mg PO QHS #45 tab 11/16/17 [Rx Confirmed 11/20/17 Last Taken 11/18/17 21:00] acetaminophen 300 mg-codeine 30 mg tablet 1 tab PO QID PRN #120 tab 11/20/17 [ Rx Last Taken Unknown] predniSONE [Prednisone] 40 mg PO [facility] 11/20/17 [History Confirmed 11/20/17 Last Taken 11/19/17 08:00] Medical - DS: Hosp Hospital course: Patient 72-year-old female history of type 2 diabetes, hypertension, hyperlipidemia, chronic lymphocytic leukemia as well as osteoarthritis and prior left and right hip replacements. She presented to the emergency department with worsening right hip pain. Patient states the onset of pain was about a week and a half ago. She felt a "pop" and onset of pain in the right groin region. As just before . It progressed, she was seen in the emergency department on November 17. Diagnosis of right hip tendinitis, which she had had before, was made. The pain however continued to worsen. the day before admission she was fairly severe pain, which worsened the next day, therefore they presented to the emergency department. Evaluation in the ED included pelvic CT which shows a right iliacus and iliopsoas muscle abscess, the largest day 3.4 x 5.7 cm abscess in the right iliopsoas muscle. Dr. Marinelli was consult the ED. She is being admitted for treatment of psoas abscess Patient had aspiration of so as abscess. Only bloody fluid was returned, no purulence. Suggests hemorrhage rather than abscess as cause of pain . Her pain was significantly improved after the procedure. CRP is only mildly elevated is normalized later. Gram stain and cultures are negative, the patient was covered with antibiotics till cultures came back negative. The patient does provide further information that she was exposed to tuberculosis and apparently had a positive skin test when she was in grade school. Her teacher had TB. The patient's never had a positive chest x-ray, repeat X ray this admit is negative. In the unlikely this represents AFB infection, Quantiferon studies have been sent, to be followed up by PCP. The patient continued to get better, her ambulation was much better, initially there was a plan to tap the hip joint too, however given improvement in the patients condition, this was not done. Should her condition worsen and she develop fever or other signis of sepsis, it may be considered. The patient had a spontaneous hematoma of the right psoas muscle, denies any h/ o trauma, not on blood thinners, INR was 1.4, etiology bit unclear. The patient has h/o CLL and follows with oncology Dr Russell, not sure if that played a role, I have advised her to discuss this with her concrete block plant supervisor. Should she develop further spontaneous hemorrhage, a more through anticoagulation panel/ mixing studies/ platlet functional studies will likely be needed, will let the concrete block plant supervisor / oncologist decide further course. Discharge diagnosis: Psoas Hematoma, - Time Spent with Patient Total time spent providing and/or coordinating discharge services: Greater than 30 minutes Medical - DS: Exam - Constitutional Vitals: Vital Signs Temp Pulse Pulse Resp BP Pulse Ox 11/22/17 03:13 97.3 F 80 20 157/76 96 11/22/17 00:00 97.8 F 83 20 169/67 95 11/21/17 20:00 98.9 F 95 H 20 134/84 95 11/21/17 16:00 98.7 F 86 155/81 95 11/21/17 12:00 96.5 F L 20 149/90 94 Intake and Output 11/21/17 11/22/17 11/22/17 21:59 05:59 13:59 Intake Total 1190 / 1190 1150 / 1150 440 / 440 Output Total 700 / 700 350 / 350 Balance 1190 / 1190 450 / 450 90 / 90 Intake: IV 1000 / 1000 Sodium Chloride 0.9% 1,000 ml @ 1000 / 1000 100 mls/hr IV .Q10H [facility] Rx#: [id number] Oral 1190 / 1190 150 / 150 240 / 240 GI Tube Flush 200 / 200 Output: Void Amount 700 / 700 350 / 350 Other: Meal Dinner Breakfast Percent of Meal Consumed 100% 100% Feeding Ability Independent # Voids 1 # Bowel Movements 1 Weight 199 lb Additional comments: Constitutional; Afebrile, cooperative, alert, not in distress. Eyes- No icterus, , No periorbital swelling Ears- Ext ear normal, hearing normal to conversation. Neck- Midline trachea, supple Respiratory system: Air Entry equal on both sides, No crackles or wheezing, no rhonchi. CVS- Rate rhythm regular, S1,S2 heard, no gallop, no rub. Abdomen- Soft nontender abdomen, no organomegaly, no tenderness, no guarding or rigidity, COLLISION WORKER- AOOx3, moving all extremities, no gross focal deficit noted. Medical - DS: Data Labs on day of discharge: Labs from last 24 hours 11/22/17 11/22/17 11/22/17 04:18 04:18 04:12 WBC 7.2 RBC 3.39 L Hgb 10.6 L Hct 31.2 L MCV 92.1 MCH 31.3 MCHC 34.0 RDW 13.1 Plt Count 254 MPV 7.0 L Gran % 55.9 Lymph % (Auto) 32.7 Ramsey % (Auto) 5.8 Eos % (Auto) 5.0 Baso % (Auto) 0.6 Gran # 4.0 Lymph # (Auto) 2.4 Ramsey # (Auto) 0.4 Eos # (Auto) 0.4 Baso # (Auto) 0 Sodium 141 Potassium 4.5 Chloride 106 Carbon Dioxide 22 Anion Gap 13.0 BUN 24 H Creatinine 1.1 GFR Calculation 50 Glucose 96 Uric Acid 6.7 Calcium 8.1 L Phosphorus 3.8 Magnesium 1.9 Total Bilirubin 0.2 Direct Bilirubin < 0.2 GGT 9 AST 11 ALT 8 Alkaline Phosphatase 44 Lactate Dehydrogenase 181 C-Reactive Protein 0.4 Total Protein 5.7 L Albumin 3.5 Globulin 2.2 Albumin/Globulin Ratio 1.6 Triglycerides 231 H 11/21/17 03:55 WBC 8.7 RBC 3.37 L Hgb 10.4 L Hct 31.4 L MCV 93.1 MCH 31.0 MCHC 33.3 RDW 13.4 Plt Count 265 MPV 7.1 L Gran % 63.6 Lymph % (Auto) 26.4 Ramsey % (Auto) 5.7 Eos % (Auto) 3.7 Baso % (Auto) 0.6 Gran # 5.5 Lymph # (Auto) 2.3 Ramsey # (Auto) 0.5 Eos # (Auto) 0.3 Baso # (Auto) 0 Sodium Potassium Chloride Carbon Dioxide Anion Gap BUN Creatinine GFR Calculation Glucose Uric Acid Calcium Phosphorus Magnesium Total Bilirubin Direct Bilirubin GGT AST ALT Alkaline Phosphatase Lactate Dehydrogenase C-Reactive Protein Total Protein Albumin Globulin Albumin/Globulin Ratio Triglycerides Preliminary micro results at discharge 11/19/17 23:14 Blood Culture - Preliminary Blood 11/19/17 23:01 Blood Culture - Preliminary Blood 11/20/17 19:28 Anaerobic Culture - Preliminary Abscess - Other 11/20/17 19:26 Body Fluid Culture - Preliminary Aspirate - Other Medical - DS: A/P - Patient/Caregiver Discharge Instructions Activity: increase activity as tolerated Diet: Regular Diet Additional Instructions: You were admitted to the hospital with a psoas hematoma, no e/o infection was found, No need for antibiotics You will need Physical therapy to work with your right leg, to prevent any weakness and help with pain management. Please go to your Physical therapist for contined therapy. A new prescription for same will be given. The reason for bleed in the muscle is not clear, Please review with Dr Russell if further tests are needed. Please go to the ER if any spontaneous bleeding from any other site, or any other significant concern. Follow up with Dr Russell as previously scheduled Follow up with PCP in 2 weeks No changes have been made in your chronic home mediations, please take them as before. - Follow up Plan Follow up with: Rito Win MD [Primary Care Provider] - Disposition: Home, Self-Care Prognosis: Fair Rehab Potential: Fair I certify that the patient requires SNF services: No Overall status at discharge: patient is progressing back to baseline Medical - DS: Qual - VTE Deep Vein Thrombosis/Pulmonary Embolism Present on Admission: No
--- NOTE | 2017-11-22 12:58 | XRay Report ---
CLINICAL INFORMATION: Cough COMPARISON: 02/21/2017 FINDINGS: The heart size, mediastinum and pulmonary vessels are unremarkable. The lungs are clear. There are no effusions. The bones and soft tissues are within normal limits. IMPRESSION: Normal chest. Interpreted and Authenticated by: Lon Fernandes 11/22/17
== END 2017-11-22 13:50 | disposition home or self-care (01) | DRG 501 ==
LOC: ED 20:11 → MEDSUR 11-20 00:01
PROVIDERS: ADMIT Internal Medicine; ATTEND Internal Medicine

== ENCOUNTER 2023-01-14 08:48 | Observation (INO) ==
--- NOTE | 2023-01-14 09:29 | Emergency Department Note ---
HPI General Chief complaint: Shortness of Breath/Dyspnea Stated complaint: pneumonia Time Seen by Provider: 01/14/23 09:25 Source: patient Mode of arrival: wheelchair Limitations: no limitations History of Present Illness HPI Narrative: Narrative: Patient is a 77-year-old female with a complex history who presents to the emergency department due to worsening shortness of breath. Patient was seen on Sunday, 6 days ago, and at that time had nausea, vomiting, and a twinge in her chest. She did not describe a shortness of breath to me at that time. She states that shortly after her emergency department visit she went and saw her primary care provider due to shortness of breath. A chest x-ray was performed o n 01/11/2023 and this demonstrated a pneumonia. Patient was placed on antibiotics, and at this time has been on antibiotics for 3 days. She states that she has had worsening shortness of breath and some chest discomfort as well. She endorses coughing. She states that she has had chills. She denies any other symptoms at this time. Related Data Home Medications Medication Instructions Recorded Confirmed valacyclovir 500 mg tablet 500 mg PO QDAY 12/24/18 01/17/23 ascorbate calcium (vitamin C) 500 1 g PO DAILY 01/09/20 01/17/23 mg tablet cholecalciferol (vitamin D3) 25 5,000 unit PO QDAY 02/07/22 01/17/23 mcg (1,000 unit) capsule apixaban 5 mg tablet (Eliquis) 5 mg PO BID 01/14/23 01/17/23 torsemide 20 mg tablet 10 mg PO QAM 01/17/23 01/17/23 Previous Rx's Medication Instructions Recorded mecobalamin (vitamin B12) 1,000 1,000 mcg PO QDAY Low B12 levels 01/26/21 mcg chewable tablet #90 tabs metoprolol succinate 25 mg 25 mg PO BID #180 tabs 03/15/22 tablet,extended release 24 hr pramipexole 1 mg tablet (Mirapex) 0.5 mg PO QHS #45 tabs 10/24/22 duloxetine 60 mg capsule,delayed 60 mg PO QDAY #90 caps 12/14/22 release (Cymbalta) acetaminophen 300 mg-codeine 30 mg 1 tab PO QID PRN pain #130 tabs 01/04/23 tablet methylprednisolone 4 mg tablets in See Rx Instructions PO PER PKG DIR 01/11/23 a dose pack (Medrol (Atilio)) #21 tabs Allergies Allergy/AdvReac Type Severity Reaction Status Date / Time gabapentin [From Neurontin] Allergy Intermediate Swelling Verified 01/14/23 09:01 Xhovlew-UEZ-AbK Reductase AdvReac Severe Muscle Pain Verified 01/14/23 09:01 Inhibitor [Qqmkstg-Lai-Fds Reductase Inhibitor] NSAIDS (Non-Steroidal AdvReac Intermediate Abdominal Verified 01/14/23 09:01 Anti-Inflamma Pain esomeprazole [From Nexium] AdvReac Mild Gastrointestinal Verified 01/14/23 09:01 Upset hydrocodone AdvReac Mild Depression Verified 01/14/23 09:01 Review of Systems ROS ROS Narrative: Narrative: Constitutional: Reports chills; Denies fever or weakness Eyes: Denies eye pain or vision change ENT ED: Denies throat pain or rhinorrhea Cardiovascular: Reports chest pain; Denies edema Respiratory: Reports shortness of breath and cough Gastrointestinal: Denies abdominal pain, nausea, vomiting, diarrhea, constipation, hematochezia or melena Musculoskeletal: Denies back pain or myalgia Integumentary: Denies rash or lesions Neurological: Denies headache, weakness, numbness, confusion, abnormal gait or dizziness PFSH Narrative Patient History Narrative: Narrative: Medical/Surgical/Family History All Active Problems (Updated 01/20/23 @ 06:26 by Parish Reid MD) Pneumonia (Acute) Chronic kidney disease (Acute) Community acquired pneumonia (Acute) Bronchopneumonia (Acute) Wheezing (Acute) Gastroenteritis (Acute) Orthostatic hypotension (Acute) Lumbosacral radiculopathy at L3 (Acute) Hypotension (Acute) Leg pain (Acute) Bronchitis (Acute) Viral URI with cough (Acute) Adverse drug reaction (Acute) Frozen shoulder syndrome (Acute) Exertional dyspnea (Acute) Fatigue (Acute) Metabolic acidosis (Chronic) Anemia due to stage 3b chronic kidney disease (Chronic) Localized edema due to fluid overload (Chronic) Acute non-ST elevation myocardial infarction (NSTEMI) (Acute) Palpitation (Acute) Acute UTI (urinary tract infection) (Acute) Pain in thoracic spine (Acute) Low back pain (Acute) Age-related osteoporosis with current pathological fracture, vertebra(e), initial encounter for fracture (Acute) Post-COVID syndrome (Acute) Bilateral leg weakness (Acute) Chronic pain (Chronic) Right shoulder pain (Acute) Chronic intractable pain (Acute) Flank pain (Acute) Post-COVID syndrome (Acute) Shortness of breath (Acute) Secondary hyperparathyroidism of renal origin (Chronic) Chronic kidney disease (CKD) stage G3b/A1, moderately decreased glomerular filtration rate (GFR) between 30-44 mL/min/1.73 square meter and albuminuria creatinine ratio less than 30 mg/g (Chronic) Annual physical exam (Acute) Macrocytic anemia (Acute) Medicare annual wellness visit, subsequent (Acute) Sinusitis, maxillary, chronic (Acute) Neurogenic claudication due to lumbar spinal stenosis (Acute) Pneumonia (Acute) Radiculopathy, lumbar region (Chronic) Strain of lumbar paraspinal muscle (Acute) Dizziness of unknown cause (Acute) Sinusitis (Acute) History of surgery (Chronic) Right shoulder tendinitis (Acute) Left thigh pain (Acute) Depressed (Acute) PAC (premature atrial contraction) (Acute) 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 (Acute) 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) use of anticoagulants (Chronic) Palpitations (Acute) Sinus tachycardia (Acute) Tachycardia (Chronic) Hypertension, essential (Chronic 04/09/15) Prediabetes (Chronic) Vitamin D deficiency (Chronic) Lumbar stenosis (Chronic) Restless legs syndrome (Chronic) Migraine (Chronic) Menopausal and postmenopausal disorder (Chronic) Chronic lymphoid leukemia (Chronic) Hyperlipidemia (Chronic) Gastroesophageal reflux (Chronic) Fibromyalgia (Chronic) Edema (Chronic) Diverticulosis of colon (Chronic) History of degenerative joint disease (Chronic) History of colonic polyps (Chronic) Chronic low back pain (Chronic 04/09/15) Anemia (Chronic) Medical History (Updated 01/20/23 @ 06:26 by Parish Reid MD) Age-related osteoporosis with current pathological fracture, vertebra(e), initial encounter for fracture Allergic conjunctivitis (04/09/15) Anemia Annual physical exam Atrial fibrillation Bilateral leg weakness Chronic kidney disease Chronic low back pain (04/09/15) Chronic lymphoid leukemia Chronic pain Decreased visual acuity Diverticulosis of colon Edema Fibromyalgia Frozen shoulder syndrome Gastroesophageal reflux History of colonic polyps History of degenerative joint disease History of fracture of left hip Hyperkalemia, diminished renal excretion Hyperlipidemia Hypertension, essential (04/09/15) 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 Lumbar stenosis Macrocytic anemia Medicare annual wellness visit, subsequent Menopausal and postmenopausal disorder Migraine Neurogenic claudication due to lumbar spinal stenosis Pneumonia Post-COVID syndrome Post-COVID syndrome Prediabetes Radiculopathy, lumbar region Restless legs syndrome Right shoulder pain Shortness of breath Tachycardia PSVT Type 2 diabetes mellitus Urinary tract infection Urinary tract infection Vitamin D deficiency Surgical History (Updated 01/18/22 @ 16:16 by Evelin Zapata) History of adenoidectomy History of colonoscopy (11/17/08) History of hysterectomy MARYLIN/BSO History of left breast biopsy History of right heart catheterization (01/18/22) History of right hip replacement History of sinus surgery History of surgery TF TYLOR #1 L5-S1 Right w/o sed TF TYLOR #3 Right L5-S1 w/o sed TF TYLOR #2 Right L5-S1 w/o sed TF TYLOR #1 L5-S1, right w/o sed History of thumb surgery [facility] R History of tonsillectomy History of vaginal surgery Vaginal/Rectal Repair Status post blepharoplasty of both eyes Bilateral Family History Mother , at 80y Coronary artery atheroma Diabetes mellitus Malignant neoplasm Father , at 87 Essential hypertension Malignant neoplasm Parkinson's Disease Social History Smoking Status: Never smoker Alcohol Intake Frequency: holiday/special occasion only Exam Narrative Narrative: Narrative: General Limitations: no limitations General appearance: Present alert and in no apparent distress; Absent anxious, appears intoxicated or sleepy Head Head: Present atraumatic and normocephalic Eye Eye: Present EOMI; Absent scleral icterus or nystagmus ENT ENT: Present mucous membranes moist; Absent nasal congestion Neck Neck: Present full ROM and trachea midline Chest Chest: Present normal inspection and symmetric chest wall rise; Absent ten derness Respiratory Respiratory: Present normal lung sounds bilaterally; Absent respiratory distress, rales/crackles, wheezes, stridor or accessory muscle use Cardiovascular Cardiovascular: Present regular rate, normal rhythm and normal heart sounds Adbominal Abdominal: Present soft; Absent distention Extremities Extremities: Present normal inspection and full ROM; Absent tenderness, pedal edema or pretibial edema Back Back: Present normal inspection and full ROM Neurological Neurological: Present alert and oriented X3 Psychiatric Psychiatric: Present normal affect and normal mood Skin Skin: Present warm (WNL), dry and normal color Course Vital Signs Vital signs: Vital Signs Temperature 98.9 F 01/14/23 08:52 Pulse Rate 102 H 01/14/23 08:52 Respiratory Rate 18 01/14/23 08:52 Blood Pressure 123/69 01/14/23 08:52 Pulse Oximetry (%) 97 01/14/23 08:52 Oxygen Delivery Method Room Air 01/14/23 08:52 Temperature 97.9 F 01/15/23 12:00 Pulse Rate 78 01/15/23 12:00 Respiratory Rate 18 01/15/23 12:00 Blood Pressure 87/51 01/15/23 12:00 Pulse Oximetry (%) 98 01/15/23 08:00 Oxygen Delivery Method Room Air 01/15/23 08:00 Oxygen Flow Rate (L/min) 0 01/15/23 00:00 [facility] MDM Narrative Medical decision making narrative: Narrative: Patient is a 77-year-old female who presents to the emergency department due to worsening shortness of breath. Differential diagnoses include worsening pneumonia with failure of outpatient therapy, ACS, pneumothorax, anemia, and dehydration. Patient's x-ray does demonstrate worsening pneumonia. She has received doses of ceftriaxone and azithromycin in the emergency department. Due to concern for knee with failure of outpatient therapy I have spoken to the hospitalist was agreed to see and evaluate patient for admission. Lab Data 01/15/23 05:35 01/15/23 05:35 Labs: Lab Results 01/14/23 01/14/23 01/14/23 Range/Units 10:22 10:22 10:26 WBC 19.3 H (4.5-11.0) K/mcL RBC 3.28 L (3.59-5.38) M/mcL Hgb 10.4 L (11.2-15.7) g/dL Hct 32.3 L (34.1-44.9) % MCV 98.5 (80.0-100.0) fL MCH 31.7 (26.0-34.0) pg MCHC 32.2 (31.0-36.0) g/dL RDW 12.0 (11.5-14.5) % Plt Count 384 (140-440) K/mcL MPV 8.9 (8.8-12.5) fL Immature Gran % (Auto) 0.9 H (0.0-0.5) % Neut % (Auto) 74.0 (38.0-78.0) % Lymph % (Auto) 21.4 (15.5-49.0) % [place] % (Auto) 3.5 (1.0-12.0) % Eos % (Auto) 0 (0.0-7.0) % Baso % (Auto) 0.2 (0.0-2.0) % Lymph # (Auto) 4.13 (1.50-4.80) K/mcL [place] # (Auto) 0.67 (0.10-0.90) K/mcL Eos # (Auto) 0 (0.00-0.70) K/mcL Baso # (Auto) 0.04 (0.00-0.30) K/mcL Immature Gran # 0.17 H (0.00-0.05) K/mcl Absolute Neutrophils 14.25 H (1.80-8.00) K/mcL Sodium 137 (133-145) mmol/L Potassium 4.4 (3.3-5.1) mmol/L Chloride 105 (96-108) mmol/L Carbon Dioxide 22 (22-30) mmol/L Anion Gap 10.0 (8.0-16.0) BUN 32 H (8-23) mg/dL Creatinine 1.3 H (0.6-1.1) mg/dL GFR Calculation 39 Glucose 122 H (70-105) mg/dL Calcium 9.2 (8.6-10.4) mg/dL POC Troponin I < 0.02 (0.00-0.08) Discharge Plan Patient/Caregiver Discharge Instructions Pt seen by [employer]/PA only: No Clinical Impression: Pneumonia Activity: increase activity as tolerated and resume usual activities as tolerated Patient Disposition: Xfer As Inpt ([facility]) Prescription drug monitoring program results: PDMP not reviewed Discharge Date/Time: 01/14/23 15:30 Discharge Location: [facility]
--- NOTE | 2023-01-14 10:36 | XRay Report ---
HISTORY: Follow-up pneumonia FINDINGS: There are alveolar infiltrate centrally in both lungs. The greatest involvement is above the minor fissure in the right upper lobe and there is mild involvement around the left hilum. The right-sided infiltrate has enlarged and there has been little change on the left side since 01/11/23. There is no apparent underlying mass. No adenopathy is detected. There is no pleural effusion. The heart size is normal. IMPRESSION: Bilateral pneumonia becoming worse on the right side Interpreted and Authenticated by: Delvin Avelar 01/14/23
[2023-01-14 11:03] LABS: Basophils # (Auto) 0.04 K/mcL (0.00-0.30); Basophils % (Auto) 0.2 % (0.0-2.0); Eosinophils # (Auto) 0 K/mcL (0.00-0.70); Eosinophils % (Auto) 0 % (0.0-7.0); Hematocrit 32.3 % (34.1-44.9); Hemoglobin 10.4 g/dL (11.2-15.7); Lymphocytes # (Auto) 4.13 K/mcL (1.50-4.80); Lymphocytes % (Auto) 21.4 % (15.5-49.0); Mean Cell Volume 98.5 fL (80.0-100.0); Mean Corpuscular HGB Conc 32.2 g/dL (31.0-36.0); Mean Platelet Volume 8.9 fL (8.8-12.5); Monocytes # (Auto) 0.67 K/mcL (0.10-0.90); Monocytes % (Auto) 3.5 % (1.0-12.0); Platelet Count 384 K/mcL (140-440); RBC 3.28 M/mcL (3.59-5.38); WBC 19.3 K/mcL (4.5-11.0)
[2023-01-14 11:21] LABS: Blood Urea Nitrogen 32 mg/dL (8-23); Calcium 9.2 mg/dL (8.6-10.4); Carbon Dioxide 22 mmol/L (22-30); Chloride 105 mmol/L (96-108); Glomerular Filtration Rate 39; Glucose 122 mg/dL (70-105)
[2023-01-14] MEDS ORDERED: cefTRIAXone 1 GM VIAL IV ONE (13:21)
[2023-01-14] MEDS ORDERED: AZITHROMYCIN 500 MG in DEXTROSE 5% IN WATER 250 ML IV ONE (13:21)
--- NOTE | 2023-01-14 13:56 | Internal Med History&Physical ---
HPI History of Present Illness Patient information: Note initiated : 01/14/23 at 1:52 pm Service Date, if different from initiated Date: [] Patient: Freida Mooney a 77 y/o F admitted on for pneumonia. Chief Complaint: [] Chief complaint: cough, sob History of present illness: Ms. Mooney is a 77 year old F with afib (on apixaban), CAD s/p CABG one year ago, CKD3, HTN. She presents with several days cough and SOB. She was recently Dx with bilateral pneumonia by CXR and given Rx for doxycycline and steroids. She reports worsening over the weekend. Workup in the ER is notable for CXR with bilateral infiltrates R>L and WBC 19. BUN/Cr 32/1.3, HCO3 22. She was given IVF, ceftriaxone, azithromycin. Constitutional Constitutional: Present as per HPI; Absent chills or fever(s) Cardiovascular Cardiovascular: Absent chest pain at rest, diaphoresis, edema, orthopnea, pedal edema or rapid heart rate Respiratory Respiratory: Present cough and dyspnea; Absent hemoptysis, excessive phlegm production or pain with cough Gastrointestinal Gastrointestinal: Absent abdominal pain, nausea or vomiting Neurological Neurological: Present as per HPI Endocrine Endocrine: Present as per HPI PFSH PFSH All Active Problems (Updated 01/14/23 @ 14:09 by Nilesh Lundy MD) Chronic kidney disease (Acute) Community acquired pneumonia (Acute) Bronchopneumonia (Acute) Wheezing (Acute) Gastroenteritis (Acute) Orthostatic hypotension (Acute) Lumbosacral radiculopathy at L3 (Acute) Hypotension (Acute) Leg pain (Acute) Bronchitis (Acute) Viral URI with cough (Acute) Adverse drug reaction (Acute) Frozen shoulder syndrome (Acute) Exertional dyspnea (Acute) Fatigue (Acute) Metabolic acidosis (Chronic) Anemia due to stage 3b chronic kidney disease (Chronic) Localized edema due to fluid overload (Chronic) Acute non-ST elevation myocardial infarction (NSTEMI) (Acute) Palpitation (Acute) Acute UTI (urinary tract infection) (Acute) Pain in thoracic spine (Acute) Low back pain (Acute) Age-related osteoporosis with current pathological fracture, vertebra(e), initial encounter for fracture (Acute) Post-COVID syndrome (Acute) Bilateral leg weakness (Acute) Chronic pain (Chronic) Right shoulder pain (Acute) Chronic intractable pain (Acute) Flank pain (Acute) Post-COVID syndrome (Acute) Shortness of breath (Acute) Secondary hyperparathyroidism of renal origin (Chronic) Chronic kidney disease (CKD) stage G3b/A1, moderately decreased glomerular filtration rate (GFR) between 30-44 mL/min/1.73 square meter and albuminuria creatinine ratio less than 30 mg/g (Chronic) Annual physical exam (Acute) Macrocytic anemia (Acute) Medicare annual wellness visit, subsequent (Acute) Sinusitis, maxillary, chronic (Acute) Neurogenic claudication due to lumbar spinal stenosis (Acute) Pneumonia (Acute) Radiculopathy, lumbar region (Chronic) Strain of lumbar paraspinal muscle (Acute) Dizziness of unknown cause (Acute) Sinusitis (Acute) History of surgery (Chronic) Right shoulder tendinitis (Acute) Left thigh pain (Acute) Depressed (Acute) PAC (premature atrial contraction) (Acute) 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 (Acute) 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) Palpitations (Acute) Sinus tachycardia (Acute) Tachycardia (Chronic) Hypertension, essential (Chronic 04/09/15) Prediabetes (Chronic) Vitamin D deficiency (Chronic) Lumbar stenosis (Chronic) Restless legs syndrome (Chronic) Migraine (Chronic) Menopausal and postmenopausal disorder (Chronic) Chronic lymphoid leukemia (Chronic) Hyperlipidemia (Chronic) Gastroesophageal reflux (Chronic) Fibromyalgia (Chronic) Edema (Chronic) Diverticulosis of colon (Chronic) History of degenerative joint disease (Chronic) History of colonic polyps (Chronic) Chronic low back pain (Chronic 04/09/15) Anemia (Chronic) Medical History (Updated 01/14/23 @ 14:09 by Nilesh Lundy MD) Age-related osteoporosis with current pathological fracture, vertebra(e), initial encounter for fracture Allergic conjunctivitis (04/09/15) Anemia Annual physical exam Atrial fibrillation Bilateral leg weakness Chronic kidney disease Chronic low back pain (04/09/15) Chronic lymphoid leukemia Chronic pain Decreased visual acuity Diverticulosis of colon Edema Fibromyalgia Frozen shoulder syndrome Gastroesophageal reflux History of colonic polyps History of degenerative joint disease History of fracture of left hip Hyperkalemia, diminished renal excretion Hyperlipidemia Hypertension, essential (04/09/15) 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 Lumbar stenosis Macrocytic anemia Medicare annual wellness visit, subsequent Menopausal and postmenopausal disorder Migraine Neurogenic claudication due to lumbar spinal stenosis Pneumonia Post-COVID syndrome Post-COVID syndrome Prediabetes Radiculopathy, lumbar region Restless legs syndrome Right shoulder pain Shortness of breath Tachycardia PSVT Type 2 diabetes mellitus Urinary tract infection Urinary tract infection Vitamin D deficiency Surgical History (Updated 01/18/22 @ 16:16 by Evelin Zapata) History of adenoidectomy History of colonoscopy (11/17/08) History of hysterectomy MARYLIN/BSO History of left breast biopsy History of right heart catheterization (01/18/22) History of right hip replacement History of sinus surgery History of surgery TF TYLOR #1 L5-S1 Right w/o sed TF TYLOR #3 Right L5-S1 w/o sed TF TYLOR #2 Right L5-S1 w/o sed TF TYLOR #1 L5-S1, right w/o sed History of thumb surgery [facility] R History of tonsillectomy History of vaginal surgery Vaginal/Rectal Repair Status post blepharoplasty of both eyes Bilateral Family History Mother , at 80y Coronary artery atheroma Diabetes mellitus Malignant neoplasm Father , at 87 Essential hypertension Malignant neoplasm Parkinson's Disease Social History marital status: 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 Children, 7 Grandchildren smoking status: Never smoker alcohol intake frequency: holiday/special occasion only MEDS/ALLERGIES Home Medications and Allergies Home Medications Medication Instructions Recorded Confirmed Type valacyclovir 500 mg tablet 500 mg PO QDAY 12/24/18 01/14/23 History apixaban 5 mg tablet (Eliquis) 5 mg PO BID #180 tabs 12/05/19 01/14/23 Rx ascorbate calcium (vitamin C) 500 1 g PO DAILY 01/09/20 01/14/23 History mg tablet fluticasone propionate 100 1 inh inhalation Q12H #28 ea 01/14/21 01/14/23 Rx mcg/actuation blister powder for inhalation (Flovent Diskus) mecobalamin (vitamin B12) 1,000 1,000 mcg PO QDAY Low B12 levels 01/26/21 01/14/23 Rx mcg chewable tablet #90 tabs cholecalciferol (vitamin D3) 25 5,000 unit PO QDAY 03/22/22 02/26/23 History mcg (1,000 unit) capsule metoprolol succinate 25 mg 25 mg PO BID #180 tabs 03/15/22 01/14/23 Rx tablet,extended release 24 hr pramipexole 1 mg tablet (Mirapex) 0.5 mg PO QHS #45 tabs 10/24/22 01/14/23 Rx torsemide 20 mg tablet 20 mg PO QAM #90 tabs 11/02/22 01/14/23 Rx duloxetine 60 mg capsule,delayed 60 mg PO QDAY #90 caps 12/14/22 01/14/23 Rx release (Cymbalta) acetaminophen 300 mg-codeine 30 mg 1 tab PO QID PRN pain #130 tabs 01/04/23 01/14/23 Rx tablet doxycycline hyclate 100 mg tablet 100 mg PO BID #20 tabs 01/11/23 01/14/23 Rx methylprednisolone 4 mg tablets in See Rx Instructions PO PER PKG DIR 01/11/23 01/14/23 Rx a dose pack (Medrol (Atilio)) #21 tabs apixaban 5 mg tablet (Eliquis) 5 mg PO BID 01/14/23 01/14/23 History Allergies Allergy/AdvReac Type Severity Reaction Status Date / Time gabapentin [From Neurontin] Allergy Intermediate Swelling Verified 01/14/23 09:01 Oqkqtnt-LNF-QkU Reductase AdvReac Severe Muscle Pain Verified 01/14/23 09:01 Inhibitor [Uvwecmc-Kow-Cnc Reductase Inhibitor] NSAIDS (Non-Steroidal AdvReac Intermediate Abdominal Verified 01/14/23 09:01 Anti-Inflamma Pain esomeprazole [From Nexium] AdvReac Mild Gastrointestinal Verified 01/14/23 09:01 Upset hydrocodone AdvReac Mild Depression Verified 01/14/23 09:01 EXAM Constitutional Vitals: Temp Pulse Resp BP Pulse Ox O2 Del Method 98.9 F 90 18 131/76 95 Room Air 01/14/23 08:52 01/14/23 12:58 01/14/23 08:52 01/14/23 12:31 01/14/23 12:58 01/14/23 08:52 General appearance: average body habitus and cooperative; no severe distress Head Head exam: Present atraumatic, normal inspection and normocephalic ENT ENT exam: Present mucous membranes moist, normal exam, normal external ear exam and normal oropharynx; Absent mucous membranes dry Neck Neck exam: Present full ROM Respiratory Respiratory exam: Absent respiratory distress Additional comments: egophany Rt middle Cardiovascular Cardiovascular exam: Present irregular rhythm Additional comments: normal rate, no edema GI/Abdominal GI/Abdominal exam: Present normal bowel sounds and soft Extremities Exam Extremities exam: Absent pedal edema Neurological Exam Neurological exam: Present CN II-XII intact Psychiatric Psychiatric exam: Present normal affect and normal mood DATA Data Completed and Pending Labs: Labs from last 24 hours 01/14/23 01/14/23 01/14/23 10:26 10:22 10:22 WBC 19.3 H RBC 3.28 L Hgb 10.4 L Hct 32.3 L MCV 98.5 MCH 31.7 MCHC 32.2 RDW 12.0 Plt Count 384 MPV 8.9 Immature Gran % (Auto) 0.9 H Neut % (Auto) 74.0 Lymph % (Auto) 21.4 [place] % (Auto) 3.5 Eos % (Auto) 0 Baso % (Auto) 0.2 Lymph # (Auto) 4.13 [place] # (Auto) 0.67 Eos # (Auto) 0 Baso # (Auto) 0.04 Immature Gran # 0.17 H Absolute Neutrophils 14.25 H Sodium 137 Potassium 4.4 Chloride 105 Carbon Dioxide 22 Anion Gap 10.0 BUN 32 H Creatinine 1.3 H GFR Calculation 39 Glucose 122 H Calcium 9.2 POC Troponin I < 0.02 A/P Assessment and plan (1) Community acquired pneumonia: Assessment and plan: - blood cultures pending - incentive spirometry - O2 as needed - ceftriaxone 1 gm IVPB daily - azithromycin 250 mg daily Status: Acute (2) Restless legs syndrome: Assessment and plan: - continue pramipexole HS Status: Chronic (3) Atrial fibrillation: Assessment and plan: - continue metoprolol succinate 25 mg daily - continue apixaban Status: Resolved Qualifiers: Atrial fibrillation type: unspecified Qualified Code(s): I48.91 - Unspecified atrial fibrillation (4) Chronic kidney disease: Assessment and plan: - continue torsemide 20 mg daily Status: Acute Sepsis Sepsis Identified: No Time Spent With Patient Time: Total time spent is greater than 50% in coordination of care (as documented) at patient's floor/unit and/or counseling patient: Initial: Total time with patient: 40 - 54 minutes
[2023-01-14] MEDS ORDERED: ALBUTEROL SULFATE 2.5 MG/3 ML NEBULIZER NEB PRN (16:04)
[2023-01-14] MEDS ORDERED: ACETAMINOPHEN 325 MG TABLET PO PRN (16:04)
[2023-01-14] MEDS ORDERED: ONDANSETRON 4 MG/2 ML VIAL IV PRN (16:04)
[2023-01-14] MEDS: 0.9 % SODIUM CHLORIDE 10 ML SYRINGE IV SCH ×2 (16:10→20:28)
[2023-01-14] MEDS: METOPROLOL SUCCINATE 25 MG TAB.XL.24H PO SCH (20:27)
[2023-01-14] MEDS: APIXABAN 5 MG TABLET PO SCH (20:27)
[2023-01-14] MEDS: ACETAMINOPHEN W/CODEINE #3 1 TABLET PO PRN (20:27)
[2023-01-14] MEDS ORDERED: PRAMIPEXOLE 0.25 MG TABLET PO SCH (21:00)
[2023-01-15] MEDS: ACETAMINOPHEN W/CODEINE #3 1 TABLET PO PRN (04:17)
[2023-01-15] MEDS: 0.9 % SODIUM CHLORIDE 10 ML SYRINGE IV SCH (05:25)
[2023-01-15 07:07] LABS: Basophils # (Auto) 0.11 K/mcL (0.00-0.30); Basophils % (Auto) 0.7 % (0.0-2.0); Eosinophils % (Auto) 0.6 % (0.0-7.0); Hematocrit 32.4 % (34.1-44.9); Hemoglobin 10.6 g/dL (11.2-15.7); Lymphocytes # (Auto) 4.07 K/mcL (1.50-4.80); Lymphocytes % (Auto) 25.3 % (15.5-49.0); Mean Cell Volume 101.3 fL (80.0-100.0); Mean Corpuscular HGB Conc 32.7 g/dL (31.0-36.0); Mean Platelet Volume 10.1 fL (8.8-12.5); Neutrophils % (Auto) 67.5 % (38.0-78.0); Platelet Count 427 K/mcL (140-440); Red Cell Distribution Width 12.2 % (11.5-14.5); WBC 16.1 K/mcL (4.5-11.0)
[2023-01-15 07:39] LABS: Blood Urea Nitrogen 34 mg/dL (8-23); Calcium 8.8 mg/dL (8.6-10.4); Carbon Dioxide 21 mmol/L (22-30); Chloride 103 mmol/L (96-108); Glomerular Filtration Rate 43; Glucose 95 mg/dL (70-105)
[2023-01-15] MEDS: APIXABAN 5 MG TABLET PO SCH (08:56)
[2023-01-15] MEDS: METOPROLOL SUCCINATE 25 MG TAB.XL.24H PO SCH (08:56)
[2023-01-15] MEDS ORDERED: cefTRIAXone 1 GM in DEXTROSE 5% IN WATER 50 ML IV SCH (09:00)
[2023-01-15] MEDS ORDERED: DULoxetine 30 MG CAPSULE PO SCH (09:00)
[2023-01-15] MEDS ORDERED: TORSEMIDE 20 MG TABLET PO SCH (09:00)
[2023-01-15] MEDS ORDERED: cefTRIAXone 1 GM VIAL IV SCH (09:00)
[2023-01-15] MEDS ORDERED: valACYclovir 1,000 MG TABLET PO SCH (09:00)
[2023-01-15] MEDS ORDERED: AZITHROMYCIN 250 MG in DEXTROSE 5% IN WATER 250 ML IV SCH (09:00)
--- NOTE | 2023-01-15 11:00 | Discharge Summary ---
Discharge Provider Provider IMPORTANT FOLLOW-UP INFORMATION FOR PCP: Patient information: Note initiated : 01/15/23 at 10:54 am Service Date, if different from initiated Date: [] Patient: Freida Mooney 77 y/o F admitted on 01/14/23 for pneumonia. Chief Complaint: [] Date of admission: 01/14/23 15:35 Discharge date: 01/15/23 Primary care physician: Rito Win MD Admitting clinician: gabrielle lundy MD Attending physician on admission: gabrielle lundy md Consults: 01/15/23 07:10 Consult to Physician [CONS] Routine Comment: Consulting Provider: Gabrielle Lundy Reason For Exam: Physician to Consult Attending physician on discharge: gabrielle lundy md Discharging clinician: gabrielle lundy md COURSE Hospital Course Hospital course: Ms. Mooney is a 77 year old F with afib (on apixaban), CAD s/p CABG one year ago, CKD3, HTN. She presents with several days cough and SOB. She was recently Dx with bilateral pneumonia by CXR and given Rx for doxycycline and steroids. She reports worsening over the weekend. Workup in the ER is notable for CXR with bilateral infiltrates R>L and WBC 19. BUN/Cr 32/1.3, HCO3 22. She was given IVF, ceftriaxone, azithromycin. The following morning patient was clinically improved, on room air, WBC improved to 16 from 19, afebrile. She received two IV doses ceftriaxone and azithromycin while in hospital. She requested d/c home. Pt was discharged home with Rx for levofloxacin 750 mg daily x 5 additional days. Discharge diagnosis: community acquired pneumonia Reason for admission: outpatient treatment failure Time Spent with Patient Time attestation: Total time spent providing and/or coordinating discharge services: Time spent: Less than 30 minutes EXAM Constitutional Vitals: Temp Pulse Resp BP Pulse Ox O2 Del Method O2 Flow Rate 97.7 F 72 18 114/63 98 Room Air 0 01/15/23 08:00 01/15/23 08:00 01/15/23 08:00 01/15/23 08:00 01/15/23 08:00 01/15/23 08:00 01/15/23 00:00 General appearance: average body habitus Head Head exam: Present atraumatic ENT ENT exam: Present mucous membranes moist Respiratory Respiratory exam: Present normal respiratory exam and CTAB; Absent accessory muscle use, respiratory distress, stridor or wheezes Cardiovascular Cardiovascular exam: Present normal rate and rhythm GI/Abdominal GI/Abdominal exam: Present normal bowel sounds and soft; Absent distended Neurological Exam Neurological exam: Present CN II-XII intact, normal gait, oriented X3 and reflexes normal; Absent motor sensory deficit Discharge Data Data Completed and Pending Labs on day of discharge: Labs from last 24 hours 01/15/23 01/15/23 01/14/23 05:35 05:35 10:22 WBC 16.1 H RBC 3.20 L Hgb 10.6 L Hct 32.4 L MCV 101.3 H MCH 33.1 MCHC 32.7 RDW 12.2 Plt Count 427 MPV 10.1 Immature Gran % (Auto) 0.9 H Neut % (Auto) 67.5 Lymph % (Auto) 25.3 Ferry % (Auto) 5.0 Eos % (Auto) 0.6 Baso % (Auto) 0.7 Lymph # (Auto) 4.07 Ferry # (Auto) 0.80 Eos # (Auto) 0.10 Baso # (Auto) 0.11 Immature Gran # 0.14 H Absolute Neutrophils 10.89 H Sodium 137 137 Potassium 4.2 4.4 Chloride 103 105 Carbon Dioxide 21 L 22 Anion Gap 13.0 10.0 BUN 34 H 32 H Creatinine 1.2 H 1.3 H GFR Calculation 43 39 Glucose 95 122 H Calcium 8.8 9.2 01/14/23 10:22 WBC 19.3 H RBC 3.28 L Hgb 10.4 L Hct 32.3 L MCV 98.5 MCH 31.7 MCHC 32.2 RDW 12.0 Plt Count 384 MPV 8.9 Immature Gran % (Auto) 0.9 H Neut % (Auto) 74.0 Lymph % (Auto) 21.4 Ferry % (Auto) 3.5 Eos % (Auto) 0 Baso % (Auto) 0.2 Lymph # (Auto) 4.13 Ferry # (Auto) 0.67 Eos # (Auto) 0 Baso # (Auto) 0.04 Immature Gran # 0.17 H Absolute Neutrophils 14.25 H Sodium Potassium Chloride Carbon Dioxide Anion Gap BUN Creatinine GFR Calculation Glucose Calcium Discharge Plan Patient/Caregiver Discharge Instructions Activity: increase activity as tolerated and resume usual activities as tolerated Diet: Regular Diet Instructions: Community Acquired Pneumonia (DC) Prescriptions: New levofloxacin 750 mg tablet 750 mg PO QDAY 5 Days Qty: 5 0RF Rx Instructions: Take one tablet daily for five days starting SundayJanuary 16 No Action Flovent Diskus 100 mcg/actuation blister with device 1 inh inhalation Q12H Qty: 28 0RF mecobalamin (vitamin B12) 1,000 mcg tablet,chewable 1,000 mcg PO QDAY Qty: 90 1RF pramipexole [Mirapex] 1 mg tablet 0.5 mg PO QHS Qty: 45 1RF torsemide 20 mg tablet 20 mg PO QAM Qty: 90 1RF Patient Comments: pt only takes 10 mg, dose was adjusted after discussion with her PCP duloxetine [Cymbalta] 60 mg capsule,delayed release(DR/EC) 60 mg PO QDAY Qty: 90 1RF acetaminophen-codeine 300-30 mg tablet 1 tab PO QID PRN (Reason: pain) Qty: 130 0RF Patient Comments: For pain Rx Instructions: takes 2 tabs every night ascorbate calcium (vitamin C) 500 mg tablet 1 g PO DAILY valacyclovir 500 mg tablet 500 mg PO QDAY methylprednisolone [Medrol (Atilio)] 4 mg tablets,dose pack See Rx Instructions PO PER PKG DIR Qty: 21 0RF Rx Instructions: PO PER PKG DIR doxycycline hyclate 100 mg tablet 100 mg PO BID Qty: 20 0RF cholecalciferol (vitamin D3) 25 mcg (1,000 unit) capsule 5,000 unit PO QDAY metoprolol succinate 25 mg tablet extended release 24 hr 25 mg PO BID Qty: 180 3RF Eliquis 5 mg tablet 5 mg PO BID Prescription drug monitoring program results: PDMP not reviewed Follow Up Plan Follow up with: Rito Win MD [Primary Care Provider] - Patient Disposition: Home, Self-Care Overall status at discharge: patient is progressing back to baseline Discharge Orders: Discharge Order (Routine); Ordered 01/15/23 Ordered By: Gabrielle Lundy QUALITY VTE Deep Vein Thrombosis/Pulmonary Embolism Present on Admission: No
[2023-01-16] MEDS ORDERED: valACYclovir 500 MG TABLET PO SCH (09:00)
--- NOTE | 2023-01-18 06:33 | EKG ---
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
== END 2023-01-15 12:15 | disposition home or self-care (01) ==
LOC: MEDSUR 08:48 → ED 08:48 → MEDSUR 15:30
PROVIDERS: ADMIT Internal Medicine; ATTEND Internal Medicine